=== PATIENT | female | born 1955 | race Two or more races ===

== ENCOUNTER 2025-06-28 17:49 | Emergency (ER) | payer MEDICARE, OTHER ==
[~2025-06-28] VITALS: Ht 160 cm; Wt 67.4 kg
[2025-06-28 18:44] LABS: Hematocrit 36.4 % (36.0-46.0); Hemoglobin 12.7 g/dL (12.2-16.2); Mean Corpuscular Hemoglobin 34.7 pg (28.0-32.0); Mean Corpuscular Volume 99.5 fL (80.0-100.0); Nucleated Red Blood Cells % 0.2 %
--- NOTE | 2025-06-28 19:15 | ED.PDOC ---
Musculoskeletal HPI Comments 69-year-old female presents with chief complaint of bilateral foot and leg pain for two weeks Pain throughout the entirety of both legs. Pain in right leg is worse than left leg. No reported recent fall, trauma, or injury. Denies any shortness of breath, chest pain, numbness, tingling, or further associated stiffness. HPI: Poor Historian. Past Medical History: anxiety, depression, HLD, HTN - on HTZ Past Surgical History: REVIEW OF SYSTEMS: CONSTITUTIONAL: Denies acute: fever, diaphoresis, chills, generalized weakness. HEAD: Denies acute: headache, photophobia Eyes: Denies acute: Double vision, vision loss, eye pain, eye discharge. EARS: Denies acute: tinnitus, hearing loss, ear discharge, ear pain, THROAT: Denies acute: sore throat, swelling, difficulty swallowing , pain with swallowing, change in voice. NECK: Denies acute: neck pain, neck swelling, stiff neck. HEART: Denies acute : chest pain, palpitations, LUNGS: Denies acute: SOB, wheezing, cough, hemoptysis ABDOMEN: Denies acute: abdominal pain, Nausea, Vomiting, diarrhea, melena , hematemesis, hematochezia SKIN: Denies acute: rash, redness, lesions, itchiness. EXTREMITIES: Denies acute: calf pain, numbness, tingling, weakness, Denies acute: Low back pain. Neuro: Denies acute: focal neurological deficit, motor or sensory focal neurological deficit, tremors, seizure like activity, confusion, dizziness, change in mental status, loss of bowel or bladder function, cauda equina like symptoms. : Denies acute: dysuria, hematuria, flank pain, increase in urinary frequency. PSYCH: Denies acute: hallucination, suicidal ideation, homicidal ideation. FEMALE: Denies acute: abnormal vaginal bleeding, foul odor, unusual discharge. PHYSICAL EXAM: General: ---no-----acute distress, awake and alert. Head: normocephalic, atraumatic. Neck: supple, trachea is midline, no swelling. Throat: Normal phonation. Eyes:, no erythema, no purulent discharge, no proptosis, no icterus. Heart: regular rate, regular rhythm, no significant murmur appreciated. Lungs: no apparent respiratory distress, Able to speak in full sentences. No wheezing, no rhonchi, no crackles. No stridors Clear to auscultation bilaterally. Abdomen: non tender to palpation, non distended, soft, no guarding, no rebound, + bowel sounds. Neuro: Awake, Alert, oriented to name, self, situation, follows commands GCS=15. Speech is normal. Skin: no petechia, no purpura, no cyanosis, non-pale, not jaundice. Lower extremities: --trace bilateral - Pitting edema no deformity, no focal swelling, Patient is neurovascularly intact in bilateral lower extremity. Pedal pulses palpable. Sensory and motor are present. Makes eye contact. moves all four extremities. Face: no apparent facial droop. Ambulating in the ED independently. Pedal pulses are palpable. ED COURSE: DISCLAIMER: This medical document was created using an electronic medical record system with voice recognition software and computerized dictation system. Although this document has been carefully reviewed, there might still be some phonetic and typographical errors. Occasional wrong-word or "sound-alike" substitutions may have occurred due to the inherent limitations of voice recognition software. These areas are purely typographical due to imperfections of the software programs and do not reflect any compromise in the patient's medical care. Please read the chart carefully and recognize, using context, where these substitutions have occurred. Chief Complaint: Extremity Swelling Time Seen by MD: 18:05 Reviewed Notes: Allergies Allergies: Coded Allergies: NO KNOWN ALLERGIES (Unverified , 06/28/25) Home Meds Active Scripts Cephalexin Monohydrate (Cephalexin) 500 Mg Cap, 500 MG PO Q6HR for 7 Days, #28 TAB Prov:RAEANN COHN Nona MCELROY 06/28/25 Information Source: Patient Mode of Arrival: Ambulatory Location: Bilateral Was a procedure done? Was a procedure done?: No Differential Diagnosis EXT Differential Diagnosis: Cellulitis, CHF, Deep Vein Thrombosis, Compartment Syndrome, Fracture, Sprain, Dislocation, Laceration, Gout, DJD, Myocardial Infarction, Neurovascular injury, Other (Leg swellingDdx include but not limited to DVT, ischemic limb, pitting edema, volume overload, CHF, cellulitis, hematoma, compartment syndrome, dependent edema, venous stasis.) Other Differential Diagnosis Peripheral vascular disease, neuropathy X-Ray, Labs, Meds, VS Vital Signs Date Time Temp Pulse Resp B/P (MAP) Pulse Ox O2 Delivery O2 Flow Rate FiO2 06/29/25 00:08 97.7 63 20 127/64 (85) 94 97.7 06/29/25 00:00 100 Room Air* 0 21 06/28/25 17:51 98.0 73 15 144/72 95 98.0 Lab Test 06/28/25 18:22 Range/Units White Blood Count 5.8 4.4-10.8 10^3/uL Red Blood Count 3.65 L 4.0-5.20 10^6/uL Hemoglobin 12.7 12.2-16.2 g/dL Hematocrit 36.4 36.0-46.0 % Mean Corpuscular Volume 99.5 80.0-100.0 fL Mean Corpuscular Hemoglobin 34.7 H 28.0-32.0 pg Mean Corpuscular Hemoglobin Concent 34.9 32.0-36.0 g/dL Red Cell Distribution Width 14.5 H 11.8-14.3 % Platelet Count 141 140-450 10^3/uL Mean Platelet Volume 8.1 6.9-10.8 fL Neutrophils (%) (Auto) 50.4 37.0-80.0 % Lymphocytes (%) (Auto) 34.7 10.0-50.0 % Monocytes (%) (Auto) 12.4 H 0.0-12.0 % Eosinophils (%) (Auto) 2.1 0.0-7.0 % Basophils (%) (Auto) 0.4 0.0-2.0 % Neutrophils # (Auto) 2.9 1.6-8.6 10 ^3/uL Lymphocytes # (Auto) 2.0 0.4-5.4 10 ^3/uL Monocytes # (Auto) 0.7 0-1.3 10 ^3/uL Eosinophils # (Auto) 0.1 0-0.8 10 ^3/uL Basophils # (Auto) 0 0-0.2 10 ^3/uL Nucleated Red Blood Cells 0.2 % Erythrocyte Sedimentation Rate 36 H 0-20 mm/hr Sodium Level 138 136-145 mmol/L Potassium Level 3.4 L 3.5-5.1 mmol/L Chloride Level 105 98-107 mmol/L Carbon Dioxide Level 25 20-31 mmol/L Anion Gap 8 5-15 Blood Urea Nitrogen 7 L 9-23 mg/dL Creatinine 0.75 0.550-1.02 mg/dL Glomerular Filtration Rate Calc 86 >90 mL/min BUN/Creatinine Ratio 9.3 L 10.0-20.0 Serum Glucose 124 H 74-106 mg/dL Calcium Level 8.2 L 8.7-10.4 mg/dL Troponin I High Sensitivity 12 </=34 ng/L C-Reactive Protein High Sensitivity 1.80 H <1.0 mg/dL B-Type Natriuretic Peptide 139.22 0-100 pg/mL [place] [address] Ph: [phone] DIAGNOSTIC IMAGING Diagnostic Imaging Report : [id number] Signed PATIENT: KAMARI YOU ACCT: [id number] UNIT: [id number] : 1955 LOC: ER ROOM / BED: / AGE / SEX: 69 / F ADM STATUS: REG ER SERVICE 01 ORDERING PHYSICIAN: RAEANN COHN DO PROCEDURE(s): BLDVT - BiLat Lower DVT REASON: leg pain ORDER NUMBER(s): [id number], ACCESSION NUMBER(s): [id number] CLINICAL HISTORY: leg pain TECHNIQUE: Color and duplex doppler imagine of the bilateral lower extremity veins was performed. Vessel compression and augmentation if possible was also pe rformed. COMPARISON: None FINDINGS: Right lower Extremity: Right common femoral vein: Normal compressibility and flow. Right superficial femoral vein: Normal compressibility and flow. Right popliteal vein: Normal compressibility and flow. Proximal calf veins demonstrate flow. Left lower Extremity: Left common femoral vein: Normal compressibility and flow. Left superficial femoral vein: Normal compressibility and flow. Left popliteal vein: Normal compressibility and flow. Proximal calf veins demonstrate flow. IMPRESSION: NO SONOGRAPHIC EVIDENCE FOR DEEP VENOUS THROMBOSIS IN THE BILATERAL LOWER EXTREMITY VEINS. ATED BY: SERGIO CARMONA MD DICTATED DATE/TIME: 06/28/252117 SIGNED BY: SERGIO CARMONA MD SIGNED DATE/TIME: 06/28/252117 CC: Time of 1ST Reevaluation: 18:35 Reevaluation 1ST: Unchanged Patient Education/Counseling: Diagnosis, Treatment Family Education/Counseling: No Family Present Comments MDM: patient presented with the above HPI.--leg pain----workup was initiated. patient was found with the above mentioned diagnosis. the following medications were ordered: please refer to order lists of meds and tests obtained by myself Dr. Cohn. Patient ED course and VS have been stabilized. Patient has been reassessed in the ED and remained in a stable condition. Pertinent incidental findings were discussed with the patient and/or family. Patient/family voices understanding and is agreeable with plan. Patient has been observed in the ED adequate length of time to insure improvement/stability. Escalation of care considered: Consideration of escalation to observation or admission Patient ambulating independently in the ED. Patient was DISCHARGED home in a stable condition. All the reports of any imaging studies that were ordered by myself were reviewed by myself. Departure 1 Departure Time of Disposition: 23:46 Impression: Primary Impression: Bilateral leg pain Disposition: 01 HOME / SELF CARE / HOMELESS Condition: Stable Additional Instructions: Additional instructions: Please read all instructions provided in this packet carefully. You MUST follow-up with your primary care/family doctor in 1 to 2 days. If you are unable to see your primary care/family doctor, please return to our emergency room for re-assessment and re-evaluation in 1 to 2 days. Return to the emergency room here in our facility or to the nearest ER [facility] if your symptoms change or worsen. CONSULTATIONS: you MUST Follow-up for consultation as soon as possible with: -vascular medicine doctor in 1-2 days. Please call for appointment. You MUST call the consultants office yourself to make an appointment. You may need to arrange that through your insurance and/or your primary/family doctor. If you are unable to see the senior research consultant in 1 to 2 days, you must return to our emergency room (or any other ER of your choice) for re-assessment and re- evaluation. Adequate fluid hydration. Although you have been discharged from the Emergency Department, this does not mean that you have a "clean bill of health". No definitive diagnosis for your symptoms has been made today. It is possible that you are in the process of developing a serious illness. This is why you must return to the ED without fail if any new or worsening symptoms develop. Below is a copy of your radiological report for follow up: [place] [address] Ph: [phone] DIAGNOSTIC IMAGING Diagnostic Imaging Report : [id number] Signed PATIENT: KAMARI YOU ACCT: [id number] UNIT: [id number] : 1955 LOC: ER ROOM / BED: / AGE / SEX: 69 / F ADM STATUS: REG ER SERVICE 01 ORDERING PHYSICIAN: RAEANN COHN DO PROCEDURE(s): BLDVT - BiLat Lower DVT REASON: leg pain ORDER NUMBER(s): [id number], ACCESSION NUMBER(s): [id number] CLINICAL HISTORY: leg pain TECHNIQUE: Color and duplex doppler imagine of the bilateral lower extremity veins was performed. Vessel compression and augmentation if possible was also performed. COMPARISON: None FINDINGS: Right lower Extremity: Right common femoral vein: Normal compressibility and flow. Right superficial femoral vein: Normal compressibility and flow. Right popliteal vein: Normal compressibility and flow. Proximal calf veins demonstrate flow. Left lower Extremity: Left common femoral vein: Normal compressibility and flow. Left superficial femoral vein: Normal compressibility and flow. Left popliteal vein: Normal compressibility and flow. Proximal calf veins demonstrate flow. IMPRESSION: NO SONOGRAPHIC EVIDENCE FOR DEEP VENOUS THROMBOSIS IN THE BILATERAL LOWER EXTREMITY VEINS. ATED BY: SERGIO CARMONA MD DICTATED DATE/TIME: 06/28/252117 SIGNED BY: SERGIO CARMONA MD SIGNED DATE/TIME: 06/28/252117 CC: e-Prescriptions Cephalexin Monohydrate (Cephalexin) 500 Mg Cap 500 MG PO Q6HR for 7 Days, #28 TAB Prov: RAEANN COHN DO 06/28/25 Discharged With: Self Critical Care Note Critical Care Time?: No I personally scribed for RAEANN COHN DO ([email or web address]) on 06/28/25 at 19:15. Electronically submitted by Blayne Yoo ([email or web address]). I personally scribed for RAEANN COHN DO ([email or web address]) on 06/28/25 at 22:35. Electronically submitted by Blayne Yoo ([email or web address]). I personally scribed for RAEANN COHN DO ([email or web address]) on 06/28/25 at 23:23. Electronically submitted by Blayne Yoo ([email or web address]). I personally scribed for RAEANN COHN DO ([email or web address]) on 06/28/25 at 23:46. Electronically submitted by Blayne Yoo ([email or web address]). RAEANN COHN DO Jun 28, 2025 19:15
[2025-06-28 19:57] LABS: Chloride 105 mmol/L (98-107); Potassium 3.4 mmol/L (3.5-5.1); Sodium 138 mmol/L (136-145)
[2025-06-28 20:02] LABS: Anion Gap 8 (5-15); BUN/Creatinine Ratio 9.3 (10.0-20.0); Blood Urea Nitrogen 7 mg/dL (9-23); Calcium 8.2 mg/dL (8.7-10.4); Carbon Dioxide 25 mmol/L (20-31); Glucose 124 mg/dL (74-106)
--- NOTE | 2025-06-28 21:20 | DVH ---
CLINICAL HISTORY: leg pain TECHNIQUE: Color and duplex doppler imagine of the bilateral lower extremity veins was performed. Ves bud compression and augmentation if possible was also performed. COMPARISON: None FINDINGS: Right lower Extremity: Right common femoral vein: Normal compressibility and flow. Right superficial femoral vein: Normal compressibility and flow. Right popliteal vein: Normal compressibility and flow. Proximal calf veins demonstrate flow. Left lower Extremity: Left common femoral vein: Normal compressibility and flow. Left superficial femoral vein: Normal compressibility and flow. Left popliteal vein: Normal compressibility and flow. Proximal calf veins demonstrate flow. IMPRESSION: NO SONOGRAPHIC EVIDENCE FOR DEEP VENOUS THROMBOSIS IN THE BILATERAL LOWER EXTREMITY VEINS.
[2025-06-28] MEDS ORDERED: CEPH500C PO (23:48)
[2025-06-29] VITALS: O2SAT 100
[2025-06-29 00:08] VITALS: BP 127/64; PULSE 63; RESP 20; TEMP 97.7; O2SAT 94
== END 2025-06-29 00:30 | disposition home or self-care (01) ==
LOC: ER 17:49
DX: M79.604 Pain in right leg (principal); M79.605 Pain in left leg; M79.671 Pain in right foot; M79.672 Pain in left foot; Z79.899 Other long term (current) drug therapy
CPT/HCPCS: 36415; 80048; 83880; 84484; 85025; 85652; 86141; 93970

== ENCOUNTER 2025-07-01 20:40 | Inpatient (IN) | payer MEDICARE ==
[~2025-07-01] VITALS: Ht 170.2 cm; Wt 61.9 kg
[~2025-07-01 20:40] MED LIST: CEPH500C PO
--- NOTE | 2025-07-01 20:52 | ED.PDOC ---
GI ASSESSMENT HPI Comments HPI: 69-year-old female who came to ER via EMS for abdominal pain. Patient claims she has been having diffuse abdominal pain for over 2 weeks. Noted also abdominal distention. Denies any nausea or vomiting or changes in bowel habits Initial Vitals BP: HR: RR: O2: Temp: Past Medical History: Hypertension, dyslipidemia, anxiety, depression Past Surgical History: Cholecystectomy Social History: Denies ETOH, smoking, and drug use. HPI: Poor Historian. 69-year-old female presents to emergency depart by ambulance from home for evaluation of diffuse abdominal pain for the last two weeks without any nausea or vomiting or diarrhea. Denies any fever. Patient was seen here two days ago for leg pain and she never mentioned anything about her abdominal pain to anyone during that evaluation. REVIEW OF SYSTEMS: CONSTITUTIONAL: Denies acute: fever, diaphoresis, chills, HEAD: Denies acute: headache, photophobia Eyes: Denies acute: Double vision, vision loss, eye pain, eye discharge. EARS: Denies acute: tinnitus, hearing loss, ear discharge, ear pain, THROAT: Denies acute: sore throat, swelling, difficulty swallowing , pain with swallowing, change in voice. NECK: Denies acute: neck pain, neck swelling, stiff neck. HEART: Denies acute : chest pain, palpitations, LUNGS: Denies acute: SOB, wheezing, cough, hemoptysis ABDOMEN: Denies acute: Nausea, Vomiting, diarrhea, melena , hematemesis, hematochezia SKIN: Denies acute: rash, redness, lesions, itchiness. EXTREMITIES: Denies acute: calf pain, numbness, tingling, weakness, denies pain in extremity. Denies acute: Low back pain. Neuro: Denies acute: focal neurological deficit, motor or sensory focal neurological deficit, tremors, seizure like activity, confusion, dizziness, change in mental status, loss of bowel or bladder function, cauda equina like symptoms. : Denies acute: dysuria, hematuria, flank pain, increase in urinary frequency. PSYCH: Denies acute: hallucination, suicidal ideation, homicidal ideation. FEMALE: Denies acute: abnormal vaginal bleeding, foul odor, unusual discharge. PHYSICAL EXAM: General: --[id number]------acute distress, awake and alert. Head: normocephalic, atraumatic. Neck: supple, trachea is midline, no swelling. Throat: Normal phonation. Eyes:, no erythema, no purulent discharge, no proptosis, no icterus. Heart: regular rate, regular rhythm, no significant murmur appreciated. Lungs: no apparent respiratory distress, Able to speak in full sentences. No wheezing, no rhonchi, no crackles. No stridors Clear to auscultation bilaterally. Abdomen: Generalized tender to palpation, non distended, soft, no guarding, no rebound, + bowel sounds. Neuro: Awake, Alert, oriented to name, self, situation, follows commands GCS=15. Speech is normal. Skin: no petechia, no purpura, no cyanosis, non-pale, not jaundice. Lower extremities: --no - Pitting edema no deformity, no focal swelling, no calf TTP. Makes eye contact. moves all four extremities. Face: no apparent facial droop. ED COURSE: DISCLAIMER: This medical document was created using an electronic medical record system with voice recognition software and computerized dictation system. Although this document has been carefully reviewed, there might still be some phonetic and typographical errors. Occasional wrong-word or "sound-alike" substitutions may have occurred due to the inherent limitations of voice recognition software. These areas are purely typographical due to imperfections of the software programs and do not reflect any compromise in the patient's medical care. Please read the chart carefully and recognize, using context, where these substitutions have occurred. Chief Complaint: Abdominal pain Time Seen by MD: 20:50 Reviewed Notes: B[employer] Process Control Technician Notes, Allergies Allergies: Coded Allergies: NO KNOWN ALLERGIES (Unverified , 06/28/25) Home Meds Active Scripts Cephalexin (KEFLEX CAPSULE) 250 Mg Cp, 500 MG PO BID for 3 Days, #6 CAP Prov:TAMMY ZULUAGA RESIDENT 07/06/25 Lactulose (Lactulose) 10 Gm/15 Ml Violet, 20 GM PO DAILY for 30 Days, #600 ML 1 Refill Prov:TAMMY ZULUAGA RESIDENT 07/06/25 Pantoprazole Sodium Sesquihydr (Pantoprazole Sodium) 40 Mg Tab, 20 MG PO DAILY for 30 Days, #30 TAB Prov:TAMMY ZULUAGA RESIDENT 07/06/25 Spironolactone (Spironolactone) 100 Mg Tab, 1 TAB PO DAILY PRN, #30 TAB 1 Refill Prov:TAMMY ZULUAGA RESIDENT 07/06/25 Furosemide (Lasix) 40 Mg Tab, 40 MG PO DAILY for 30 Days, #30 TAB Prov:KAITY ZULUAGAMETHODIST [facility] RES[facility] 07/06/25 Cephalexin Monohydrate (Cephalexin) 500 Mg Cap, 500 MG PO Q6HR for 7 Days, #28 TAB Prov:RAEANN COHN DO 06/28/25 Reported Medications Oxybutynin Chloride (Oxybutynin Chloride) 5 Mg/5 Ml Violet, 5 MG PO, ML 07/02/25 Citalopram Hydrobromide (Citalopram Hydrobromide) 40 Mg Tab, 40 MG PO DAILY for 30 Days, MG 07/02/25 Atorvastatin Calcium (ATORVASTATIN CALCIUM) 20 Mg Tab, 1 TAB PO DAILY, #30 TAB 5 Refills 07/02/25 Hydrochlorothiazide (Hydrochlorothiazide) 25 Mg Tab, 25 MG PO DAILY for 30 Days, MG 07/02/25 Baclofen (Baclofen) 10 Mg Tab, 10 MG PO Q8HP for 30 Days, MG 07/02/25 Pantoprazole Sodium (PANTOPRAZOLE SODIUM) 40 Mg Inj, 40 MG IV, INJ 07/02/25 Information Source: Patient Mode of Arrival: EMS Timing: Weeks Duration: Intermittent Past Medical History PAST MEDICAL HISTORY: Anxiety, Depression, High Lipids, HTN Surgical History: Cholecystectomy PHOTOGRAPH RETOUCHER History: Denies all PHOTOGRAPH RETOUCHER Hx Family History Family History: Reviewed,noncontributory to illness Social History Smoker: Non-Smoker Alcohol: Denies ETOH Use Drugs: Denies Drug Use Lives In: Home EKG EKG : Pulse Rate (adult): 81 Cardiac Rhythm: NSR Was a procedure done? Was a procedure done?: No GI differential Dx Differential Diagnosis: Gastritis/PUD, Gastroenteritis, Pancreatitis, UTI, Other (DDX include Diverticulitis, colitis, gastroenteritis, acute abdomen, SBO, enteritis, constipation, volvulus, appendicitis, Gallbladder disease, choledocolithiasis, ascending cholangitis, pancreatitis, intraAbdominal mass/neoplasm, hepatitis, UTI, pylonephritis, kidney stone, aneurysm, dissection, Inflammatory bowel disease, gastroparesis, ischemic bowel, ) X-Ray, Labs, Meds, VS Vital Signs Date Time Temp Pulse Resp B/P (MAP) Pulse Ox O2 Delivery O2 Flow Rate FiO2 07/02/25 01:27 135/60 07/02/25 01:09 84 12 95 Room Air* 0 21 07/02/25 01:08 98.7 84 12 135/60 (85) 95 98.7 07/01/25 20:52 81 07/01/25 20:42 81 07/01/25 20:40 98.6 63 18 121/67 97 98.6 Lab Test 07/02/25 00:17 07/01/25 23:03 07/01/25 21:57 07/01/25 21:02 Range/Units Troponin I High Sensitivity 11 14 12 </=34 ng/L Lactic Acid Level 2.6 *H 2.4 *H 0.4-2.0 mmol/L White Blood Count 6.2 4.4-10.8 10^3/uL Red Blood Count 3.79 L 4.0-5.20 10^6/uL Hemoglobin 13.2 12.2-16.2 g/dL Hematocrit 37.6 36.0-46.0 % Mean Corpuscular Volume 99.0 80.0-100.0 fL Mean Corpuscular Hemoglobin 34.7 H 28.0-32.0 pg Mean Corpuscular Hemoglobin Concent 35.1 32.0-36.0 g/dL Red Cell Distribution Width 14.9 H 11.8-14.3 % Platelet Count 178 140-450 10^3/uL Mean Platelet Volume 7.7 6.9-10.8 fL Neutrophils (%) (Auto) 70.9 37.0-80.0 % Lymphocytes (%) (Auto) 20.4 10.0-50.0 % Monocytes (%) (Auto) 8.1 0.0-12.0 % Eosinophils (%) (Auto) 0.4 0.0-7.0 % Basophils (%) (Auto) 0.2 0.0-2.0 % Neutrophils # (Auto) 4.4 1.6-8.6 10 ^3/uL Lymphocytes # (Auto) 1.3 0.4-5.4 10 ^3/uL Monocytes # (Auto) 0.5 0-1.3 10 ^3/uL Eosinophils # (Auto) 0 0-0.8 10 ^3/uL Basophils # (Auto) 0 0-0.2 10 ^3/uL Nucleated Red Blood Cells 0.2 % Sodium Level 137 136-145 mmol/L Potassium Level 3.2 L 3.5-5.1 mmol/L Chloride Level 103 98-107 mmol/L Carbon Dioxide Level 25 20-31 mmol/L Anion Gap 9 5-15 Blood Urea Nitrogen < 5 L 9-23 mg/dL Creatinine 0.77 0.550-1.02 mg/dL Glomerular Filtration Rate Calc 83 >90 mL/min BUN/Creatinine Ratio 6.5 L 10.0-20.0 Serum Glucose 130 H 74-106 mg/dL Calcium Level 8.2 L 8.7-10.4 mg/dL Total Bilirubin 3.3 H 0.2-1.0 mg/dL Aspartate Amino Transferase (AST) 202 H 13-40 U/L Alanine Aminotransferase (ALT) 141 H 7-40 U/L Alkaline Phosphatase 168 H 46-116 U/L Total Protein 8.6 H 5.7-8.2 g/dL Albumin 2.6 L 3.2-4.8 g/dL Lipase 40 12-53 U/L [place] [id number] Ph: [phone] DIAGNOSTIC IMAGING Diagnostic Imaging Report : [id number] Signed PATIENT: KAMARI YOU ACCT: [id number] UNIT: [id number] : 1955 LOC: ER ROOM / BED: / AGE / SEX: 69 / F ADM STATUS: REG ER SERVICE 22 ORDERING PHYSICIAN: RAEANN COHN DO PROCEDURE(s): ABDL - ABDOMEN LIMITED REASON: RUQ US, abd pain ORDER NUMBER(s): [id number], ACCESSION NUMBER(s): [id number] INDICATION: RUQ US, abd pain TECHNIQUE: Multiple real-time sonographic images were obtained of the right upper quadrant. COMPARISON: None FINDINGS: The liver measures 9.7 cm. There is increased hepatic echogenicity. There is nodular contour. Prior cholecystectomy. The common bile duct measures 6 mm. The right kidney measures 9.8 cm. The right kidney is normal in contour, size, and shape. The echogenicity is normal. There is no hydronephrosis. The pancreas is not well visualized due to overlying bowel gas. Ascites is seen in all 4 quadrants. IMPRESSION: 1. Cirrhotic appearance of the liver. 2. Ascites. ATED BY: SERGIO CARMONA MD DICTATED DATE/TIME: 07/01/252315 SIGNED BY: SERGIO CARMONA MD SIGNED DATE/TIME: 07/01/252315 CC: [place] [id number] Ph: [phone] DIAGNOSTIC IMAGING Diagnostic Imaging Report : [id number] Signed PATIENT: KAMARI YOU ACCT: [id number] UNIT: [id number] : 1955 LOC: ER ROOM / BED: / AGE / SEX: 69 / F ADM STATUS: REG ER SERVICE 46 ORDERING PHYSICIAN: RAEANN COHN DO PROCEDURE(s): ABPL - CT AB PEL WO CON-NO ORAL OR IV REASON: ABD PAIN ORDER NUMBER(s): [id number], ACCESSION NUMBER(s): [id number] CLINICAL HISTORY: ABD PAIN TECHNIQUE: CT of the abdomen and pelvis was performed without IV contrast. This exam was performed according to our departmental dose optimization program. Up-to-date CT equipment and radiation dose reduction techniques are utilized as appropriate. CTDI 8.4 DLP 474 COMPARISON: None FINDINGS: Evaluation is limited to image degradation secondary to patient motion. Abdomen/Pelvis: The adrenal glands, kidneys, pancreas, spleen, and uterus are grossly unremarkable. The liver is cirrhotic in morphology with nodular contour. The bladder is not well distended and therefore not well evaluated. The abdominal aorta is normal in course and caliber. There are no significant atherosclerotic calcifications. There is no free intraperitoneal air. Is a large amount of sites in the peritoneal cavity. There is no enlarged abdominal pelvic lymph node. There is no bowel wall thickening or dilatation. The appendix is normal. Other: The imaged lower thorax demonstrates trace bilateral pleural effusions. There are breathing changes with atelectasis. No acute osseous abnormality is evident. Impression: Cirrhosis with large amount of ascites. Cholecystectomy. ATED BY: SERGIO CARMONA MD DICTATED DATE/TIME: 07/01/252216 SIGNED BY: SERGIO CARMONA MD SIGNED DATE/TIME: 07/01/252216 CC: Time of 1ST Reevaluation: 20:49 Reevaluation 1ST: Unchanged Patient Education/Counseling: Diagnosis, Treatment Family Education/Counseling: No Family Present Comments MDM: patient presented with the above HPI.---abdominal pain---workup was initiated. patient was found with the above mentioned diagnosis. the following medications were ordered: please refer to order lists of meds and tests obtained by myself Dr. Cohn. Patient ED course and VS have been stabilized. Patient has been reassessed in the ED and remained in a stable condition. Pertinent incidental findings were discussed with the patient and/or family. Patient/family voices understanding and is agreeable with plan. Patient has been observed in the ED adequate length of time to insure improvement/stability. Escalation of care considered: Consideration of escalation to observation or admission Patient was ADMITTED to the medicine team for further evaluation and treatment of their presentation. All the reports of any imaging studies that were ordered by myself were reviewed by myself. SEPSIS Sepsis Screen Physician Orders Petroleum Inspector (07/01/25 ) Ct Ab Pel Wo Con-No Oral Or Iv (07/01/25 20:47) Abdomen Limited (07/01/25 22:23) Vital Signs Date Time Temp Pulse Resp B/P (MAP) Pulse Ox O2 Delivery O2 Flow Rate FiO2 07/02/25 01:27 135/60 07/02/25 01:09 84 12 95 Room Air* 0 21 07/02/25 01:08 98.7 84 12 135/60 (85) 95 98.7 07/01/25 20:52 81 07/01/25 20:42 81 07/01/25 20:40 98.6 63 18 121/67 97 98.6 Laboratory Tests Test 07/01/25 21:02 07/01/25 23:03 Lactic Acid Level 2.4 mmol/L (0.4-2.0) *H 2.6 mmol/L (0.4-2.0) *H White Blood Count 6.2 10^3/uL (4.4-10.8) Departure 1 Departure Time of Disposition: 22:08 Impression: Primary Impression: Abdominal pain Additional Impressions: Elevated LFTs Hyperbilirubinemia Hypoalbuminemia Elevated lactic acid level Ascites Disposition: ADMITTED INPATIENT Admit to: Tele Condition: Guarded e-Prescriptions Cephalexin (KEFLEX CAPSULE) 250 Mg Cp 500 MG PO BID for 3 Days, #6 CAP [facility] 07/06/25 Lactulose (Lactulose) 10 Gm/15 Ml Violet 20 GM PO DAILY for 30 Days, #600 ML 1 [facility]ill [facility] 07/06/25 Pantoprazole Sodium Sesquihydr (Pantoprazole Sodium) 40 Mg Tab 20 MG PO DAILY for 30 Days, #30 TAB Prov: [facility] 07/06/25 Spironolactone (Spironolactone) 100 Mg Tab 1 TAB PO DAILY PRN, #30 TAB 1 [facility] 07/06/25 Furosemide (Lasix) 40 Mg Tab 40 MG PO DAILY for 30 Days, #30 TAB [facility]: [facility] 07/06/25 Discharged With: Self Critical Care Note Critical Care Time?: Yes (45 min-critical care time only) Stability Stability form required: No I personally scribed for RAEANN COHN DO ([email or web address]) on 07/01/25 at 20:52. Electronically submitted by Donavan Anderson ([facility]). I personally scribed for RAEANN COHN DO ([email or web address]) on 07/01/25 at 20:52. Electronically submitted by Donavan Anderson ([facility]). I personally scribed for RAEANN COHN DO ([email or web address]) on 07/01/25 at 22:31. Electronically submitted by Donavan Anderson ([facility]). I personally scribed for RAEANN COHN DO ([email or web address]) on 07/01/25 at 23:43. Electronically submitted by Donavan Anderson ([facility]). RAEANN COHN DO Jul 01, 2025 20:52
[2025-07-01 21:15] LABS: Hematocrit 37.6 % (36.0-46.0); Hemoglobin 13.2 g/dL (12.2-16.2); Mean Corpuscular Hemoglobin 34.7 pg (28.0-32.0); Mean Corpuscular Volume 99.0 fL (80.0-100.0); Nucleated Red Blood Cells % 0.2 %
--- NOTE | 2025-07-01 21:30 | ECG ---
[facility] Test Date: 2025-07-01 Test Time: 20:42:49 Pat Name: KAMARI YOU Department: Room: 0287 Gender: F Lead Technical Writer: BRANDI : 1955 Requested By: RAEANN COHN Order Number: [id number] Reading MD: Nicolas Hernandez Measurements Intervals [place] Rate: 81 P: 60 HI: 152 QRS: 35 QRSD: 83 T: 40 QT: 391 QTc: 454 Interpretive Statements Sinus rhythm Borderline low voltage, extremity leads Electronically Signed On 07-07-2025 9:24:14 PDT by Nicolas Hernandez Please click the below link to view image of tracing.
[2025-07-01 21:43] LABS: Anion Gap 9 (5-15); Carbon Dioxide 25 mmol/L (20-31); Chloride 103 mmol/L (98-107); Lipase 40 U/L (12-53); Sodium 137 mmol/L (136-145)
[2025-07-01 21:50] LABS: Alanine Aminotransferase 141 U/L (7-40); Albumin 2.6 g/dL (3.2-4.8); Alkaline Phosphatase 168 U/L (46-116); BUN/Creatinine Ratio 6.5 (10.0-20.0); Bilirubin, Total 3.3 mg/dL (0.2-1.0); Blood Urea Nitrogen < 5 mg/dL (9-23); Calcium 8.2 mg/dL (8.7-10.4); Glucose 130 mg/dL (74-106); Potassium 3.2 mmol/L (3.5-5.1); Total Protein 8.6 g/dL (5.7-8.2)
[2025-07-01 22:12] LABS: Lactic Acid w/Reflex 2.4 mmol/L (0.4-2.0)
--- NOTE | 2025-07-01 22:20 | DVH ---
CLINICAL HISTORY: ABD PAIN TECHNIQUE: CT of the abdomen and pelvis was performed without IV contrast. This exam was performed ac cording to our departmental dose optimization program. Up-to-date CT equipment and radiation dose red uction techniques are utilized as appropriate. CTDI 8.4 DLP 474 COMPARISON: None FINDINGS: Evaluation is limited to image degradation secondary to patient motion. Abdomen/Pelvis: The adrenal glands, kidneys, pancreas, spleen, and uterus are grossly unremarkable. The liver is cirrhotic in morphology with nodular contour. The bladder is not well distended and therefore not well evaluated. The abdominal aorta is normal in course and caliber. There are no significant atherosclerotic calcifi cations. There is no free intraperitoneal air. Is a large amount of sites in the peritoneal cavity. There is no enlarged abdominal pelvic lymph node. There is no bowel wall thickening or dilatation. The appendix is normal. Other: The imaged lower thorax demonstrates trace bilateral pleural effusions. There are breathing changes w ith atelectasis. No acute osseous abnormality is evident. Impression: Cirrhosis with large amount of ascites. Cholecystectomy.
--- NOTE | 2025-07-01 23:19 | DVH ---
INDICATION: RUQ US, abd pain TECHNIQUE: Multiple real-time sonographic images were obtained of the right upper quadrant. COMPARISON: None FINDINGS: The liver measures 9.7 cm. There is increased hepatic echogenicity. There is nodular conto ur. Prior cholecystectomy. The common bile duct measures 6 mm. The right kidney measures 9.8 cm. The right kidney is normal in contour, size, and shape. The echog enicity is normal. There is no hydronephrosis. The pancreas is not well visualized due to overlying bowel gas. Ascites is seen in all 4 quadrants. IMPRESSION: 1. Cirrhotic appearance of the liver. 2. Ascites.
[2025-07-02] VITALS (10 sets, daily range): BP systolic 102–128; BP diastolic 61–74; PULSE 70–91; RESP 12–20; TEMP 98.3–100.1; O2SAT 92–97
[2025-07-02] MEDS: SODIUM CHLORIDE 0.9% 1,000 ML IV ONE (00:58)
[2025-07-02] MEDS: ALBUMIN 25% 100 ML IV ONE (01:01)
[2025-07-02] MEDS: fentaNYL CITRATE 100 MCG/2 ML VL IV ONE (01:27)
[2025-07-02] MEDS ORDERED: DOCUSATE SOD 100 MG CAP PO PRN (02:00)
[2025-07-02] MEDS ORDERED: ONDANSETRON HCL 4 MG/2 ML VIAL IV PRN (02:00)
[2025-07-02 02:59] LABS: INR 1.43 (0.9-1.15); Prothrombin Time 14.6 sec (9.3-11.8)
[2025-07-02 04:08] LABS: Hematocrit 34.6 % (36.0-46.0); Hemoglobin 11.7 g/dL (12.2-16.2); Mean Corpuscular Hemoglobin 34.7 pg (28.0-32.0); Mean Corpuscular Volume 102.5 fL (80.0-100.0); Nucleated Red Blood Cells % 0.1 %
[2025-07-02 04:16] LABS: Anion Gap 10 (5-15); BUN/Creatinine Ratio 8.5 (10.0-20.0); Carbon Dioxide 23 mmol/L (20-31); Chloride 106 mmol/L (98-107); Sodium 139 mmol/L (136-145); Total Protein 8.0 g/dL (5.7-8.2)
[2025-07-02 04:19] LABS: Alanine Aminotransferase 118 U/L (7-40); Albumin 3.0 g/dL (3.2-4.8); Alkaline Phosphatase 137 U/L (46-116); Bilirubin, Total 3.7 mg/dL (0.2-1.0); Blood Urea Nitrogen 6 mg/dL (9-23); Calcium 8.2 mg/dL (8.7-10.4); Glucose 110 mg/dL (74-106); Potassium 3.4 mmol/L (3.5-5.1)
--- NOTE | 2025-07-02 05:56 | DVHHPRES ---
History of Present Illness Resident Creating Document: LYRIC BRAY RESIDENT History of Present Illness Anitha Mijares is a 69-year-old female with past medical history of hypertension, dyslipidemia, anxiety, depression who came to the ED with chief complaints of 9/10, intermittent abdominal pain associated with abdominal diste ntion, progressively worsening over 2 weeks, radiating to the back patient also states that she feels like food gets stuck in her throat, had watery diarrhea 3 times yesterday but was constipated for the last 2 weeks. Patient also states that she felt dizzy yesterday and fell because her legs gave out but did not report any head trauma. Patient also states burning sensation dysuria when she urinates. She also states that she had fevers which were intermittent since the last 2 weeks. Does not use home oxygen. Abdominal CT showed cirrhosis with large amount of ascites cleared liver ultrasound showed cirrhotic appearance of liver, ascites. Patient is admitted for further management. Past medical history: hypertension, dyslipidemia, anxiety, depression Past surgical history: Hysterectomy, cholecystectomy Family history: Reviewed, noncontributory Personal history patient denies smoking, drinking, drug use Lives with: Family PCP: Dr. Olivarez Review of Systems Constitutional: Yes: Fever, Chills; No: Sweats, Weakness, Malaise, Other Eyes: No: Pain, Vision change, Conjunctivae inflammation, Eyelid inflammation, Other, Redness ENT: No: Ear pain, Ear discharge, Nose pain, Nose discharge, Nose congestion, Mouth pain, Mouth swelling, Throat pain, Throat swelling, Other Respiratory: No: Cough, Dry, Shortness of breath, SOB with excertion, Wheezing, Hemoptysis, Pleuritic Pain, Sputum, Wheezing, Other Cardiovascular: No: Chest Pain, Palpitations, Orthopnea, Paroxysmal Noc. Dys pnea, Edema, Lt Headedness, Other Gastrointestinal: Abdominal Pain, Diarrhea, Constipation; No: Nausea, Vomiting, Melena, Hematochezia, Other Genitourinary: Dysuria; No Frequency, No Incontinence, No Hematuria, No Retention, No Other Musculoskeletal: No: other, neck pain, shoulder pain, arm pain, back pain, hand pain, leg pain, foot pain Skin: No: Rash, Lesions, Jaundice, Bruising, Other Neurological: No: Weakness, Numbness, Incoordination, Change in speech, Confusion, Seizures, Other Allergies: Coded Allergies: NO KNOWN ALLERGIES (Unverified , 06/28/25) Medications Current Medications Medications Dose Ordered Sig/Juan Route Start Time Stop Time Status Last Admin Dose Admin Ondansetron HCl 4 mg Q4HP PRN IV 07/02/25 02:00 Docusate Sodium 100 mg BIDPRN PRN PO 07/02/25 02:00 Morphine Sulfate 2 mg Q4HPRN PRN IV 07/02/25 02:00 Ceftriaxone Sodium/Dextrose 50 ml @ 50 mls/hr DAILY IV 07/03/25 10:00 Metronidazole 100 ml @ 100 mls/hr Q8HR IV 07/02/25 14:00 Exam Vital Signs Vital Signs Date Time Temp Pulse Resp B/P (MAP) Pulse Ox O2 Delivery O2 Flow Rate FiO2 07/02/25 04:30 72 20 96 Room Air* 0 21 07/02/25 04:20 98.3 128/74 (92) 98.3 Exam General: Patient alert and oriented in person, place and time. Patient following commands. Moderate distress HEENT: Normocephalic, atraumatic, moist mucous membranes Respiratory/pulmonary: Clear lungs bilaterally, vesicular murmurs present in almost all lung pelaez, no associated crackles or wheezes. Cardiovascular: Normal heart sounds S1 and S2 with no associated murmurs Abdomen: abdominal distention, diffuse tenderness, no guarding, rigidity Extremities: Mild bilateral pitting edema Peripheral Pulses: 3+ Radial (R). 3+ Radial (L). 3+ Dorsalis pedis (R). 3+ Dorsalis pedis(L) Skin: No rashes or pruritus, there is no sacral edema present at this time. Neurological: Intact cranial nerves with no focal neurologic deficits Psych/mood: Normal Labs/Xrays Labs Test 07/02/25 03:19 07/02/25 02:13 07/02/25 00:17 07/01/25 21:02 Range/Units White Blood Count 6.9 4.4-10.8 10^3/uL Red Blood Count 3.38 L 4.0-5.20 10^6/uL Hemoglobin 11.7 L 12.2-16.2 g/dL Hematocrit 34.6 L 36.0-46.0 % Mean Corpuscular Volume 102.5 H 80.0-100.0 fL Mean Corpuscular Hemoglobin 34.7 H 28.0-32.0 pg Mean Corpuscular Hemoglobin Concent 33.9 32.0-36.0 g/dL Red Cell Distribution Width 15.2 H 11.8-14.3 % Platelet Count 148 140-450 10^3/uL Mean Platelet Volume 7.6 6.9-10.8 fL Neutrophils (%) (Auto) 59.3 37.0-80.0 % Lymphocytes (%) (Auto) 29.1 10.0-50.0 % Monocytes (%) (Auto) 11.1 0.0-12.0 % Eosinophils (%) (Auto) 0.3 0.0-7.0 % Basophils (%) (Auto) 0.2 0.0-2.0 % Neutrophils # (Auto) 4.1 1.6-8.6 10 ^3/uL Lymphocytes # (Auto) 2.0 0.4-5.4 10 ^3/uL Monocytes # (Auto) 0.8 0-1.3 10 ^3/uL Eosinophils # (Auto) 0 0-0.8 10 ^3/uL Basophils # (Auto) 0 0-0.2 10 ^3/uL Nucleated Red Blood Cells 0.1 % Sodium Level 139 136-145 mmol/L Potassium Level 3.4 L 3.5-5.1 mmol/L Chloride Level 106 98-107 mmol/L Carbon Dioxide Level 23 20-31 mmol/L Anion Gap 10 5-15 Blood Urea Nitrogen 6 L 9-23 mg/dL Creatinine 0.71 0.550-1.02 mg/dL Glomerular Filtration Rate Calc 92 >90 mL/min BUN/Creatinine Ratio 8.5 L 10.0-20.0 Serum Glucose 110 H 74-106 mg/dL Calcium Level 8.2 L 8.7-10.4 mg/dL Total Bilirubin 3.7 H 0.2-1.0 mg/dL Aspartate Amino Transferase (AST) 163 H 13-40 U/L Alanine Aminotransferase (ALT) 118 H 7-40 U/L Alkaline Phosphatase 137 H 46-116 U/L Total Protein 8.0 5.7-8.2 g/dL Albumin 3.0 L 3.2-4.8 g/dL Prothrombin Time 14.6 H 9.3-11.8 sec Prothrombin Time INR 1.43 H 0.9-1.15 Lactic Acid Level 2.0 0.4-2.0 mmol/L Troponin I High Sensitivity 11 </=34 ng/L Lipase 40 12-53 U/L SEPSIS Sepsis Screen Date sepsis recognized/suspect: Jul 01, 2025 Time Sepsis recognized/suspect: 2039 Recent Procedure: No On Antibiotic Therapy: No Respiratory Rate >20: No Heart Rate >90: No Temp<36 C (96.8 F) or >38.3 C: No SBP <90 or MAP <65 mmHG: No New Acute Mental Status Change: No Is the patient on CPAP, BIPAP,: No Physician Orders Abdomen Limited (07/01/25 22:23) Admit (07/02/25 01:53) Allergies (07/02/25:53) Code Status (07/02/25:53) Ondansetron Hcl (Zofran) (07/02/25 02:00) Docusate Sodium Capsule (Colace Capsule) (07/02/25 02:00) Npo (Nothing By Mouth) Diet (07/02/25 Breakfast) Condition: Serious (07/02/25 01:53) Bedrest With Bathroom Privileg (07/02/25 01:53) Morphine Sulfate Injection (07/02/25 02:00) Oxygen By Nasal Cannula (07/02/25:53) Stat Ekg For Chest Pain (07/02/25 01:53) Notify Md Of Changes From Base (07/02/25 01:53) Five Piece Expansion Maker Hand For 24 Hours (07/02/25 01:53) Emergency Dysrhythmia Protocol (07/02/25 01:53) Rhythm Strips Once Every Shift (07/02/25 01:53) Metronidazole 500mg/100ml (Flagyl 500mg/ (07/02/25 14:00) Ceftriaxone 2gm/50ml (Rocephin 2gm/50ml) (07/03/25 10:00) Vital Signs Date Time Temp Pulse Resp B/P (MAP) Pulse Ox O2 Delivery O2 Flow Rate FiO2 07/02/25 04:30 72 20 96 Room Air* 0 21 07/02/25 04:20 98.3 72 20 128/74 (92) 96 98.3 07/02/25 02:57 98.5 78 96 152/70 (97) 98 98.5 07/02/25 01:27 135/60 07/02/25 01:09 84 12 95 Room Air* 0 21 07/02/25 01:08 98.7 84 12 135/60 (85) 95 98.7 Laboratory Tests Test 07/01/25 21:02 07/01/25 23:03 07/02/25 02:13 07/02/25 03:19 Lactic Acid Level 2.4 mmol/L (0.4-2.0) *H 2.6 mmol/L (0.4-2.0) *H 2.0 mmol/L (0.4-2.0) White Blood Count 6.2 10^3/uL (4.4-10.8) 6.9 10^3/uL (4.4-10.8) Medications Medications Dose Ordered Sig/Juan Route Start Time Stop Time Status Last Admin Dose Admin Albumin Human 100 ml @ 100 mls/hr ONCE ONCE IV 07/01/25 22:30 07/01/25 23:29 DC 07/02/25 01:01 100 MLS/HR Ceftriaxone Sodium/Dextrose 50 ml @ 50 mls/hr ONCE ONCE IV 07/02/25 02:00 07/02/25 02:59 DC 07/02/25 04:38 50 MLS/HR Fentanyl Citrate 100 mcg ONCE ONCE IV 07/02/25 01:30 07/02/25 01:31 DC 07/02/25 01:27 100 MCG Metronidazole 100 ml @ 100 mls/hr ONCE ONCE IV 07/02/25 02:00 07/02/25 02:59 DC 07/02/25 02:54 100 MLS/HR Sodium Chloride 1,000 ml @ 1,000 mls/hr Q1H ONCE IV 07/01/25 22:30 07/01/25 23:29 DC 07/02/25 00:58 1,000 MLS/HR Assessment/Plan Assessment/Plan Assessment and plan # possible spontaneous bacterial peritonitis # liver cirrhosis with large ascites - IV ceftriaxone - IV metronidazole - IR consulted, pending - CT abdomen showed Cirrhosis with large amount of ascites. Cholecystectomy. - liver ultrasound showed Cirrhotic appearance of the liver. Ascites. - hepatitis panel Consider spironolactone plus Lasix after paracentesis # hypokalemia - repleted, monitor labs # transaminitis - monitor labs - liver ultrasound showed Cirrhotic appearance of the liver. Ascites. # lactic acidosis due to liver cirrhosis - monitor lactic acid # hypertension - resume home notes # dyslipidemia - resume home meds # anxiety/depression - resume home meds PPI prophylaxis: Protonix DVT prophylaxis: not indicated Goals of care addressed with the patient for more than 33 minutes: Full code status Case discussed with Dr. Bañuelos , patient and nurse Plan discussed with: Patient My Orders Orders - LYRIC BRAY RESIDENT Procedure Category Date Status Time Admit ADMIT 07/02/25 Transmitted 01:53 Allergies INOCENCIA 07/02/25 In Process 01:53 Code Status CODE 07/02/25 Transmitted 01:53 Ondansetron Hcl PHA 07/02/25 In Process (Zofran) 02:00 Docusate Sodium PHA 07/02/25 In Process Capsule (Colace 02:00 Npo (Nothing By DIET 07/02/25 Transmitted Mouth) Diet Breakfast Condition: Serious INOCENCIA 07/02/25 In Process 01:53 Bedrest With Bathroom [facility] 07/02/25 In Process Privileg 01:53 Morphine Sulfate [facility] 07/02/25 In Process Injection 02:00 Oxygen By Nasal RT 07/02/25 Transmitted Cannula 01:53 Stat Ekg For Chest [facility] 07/02/25 In Process Pain 01:53 Notify Md Of Changes [facility] 07/02/25 In Process From Base 01:53 Five Piece Expansion Maker Hand For [facility] 07/02/25 In Process 24 Hours 01:53 Emergency Dysrhythmia [facility] 07/02/25 In Process Protocol 01:53 Rhythm Strips Once INOCENCIA 07/02/25 In Process Every Shift 01:53 Metronidazole PHA 07/02/25 In Process 500mg/100ml (Flagyl 14:00 Ceftriaxone 2gm/50ml PHA 07/03/25 In Process (Rocephin 2gm/50ml) 10:00 Date of Service: Jul 01, 2025 Billing Provider: YESSY BAÑUELOS MD Common Visit Codes: 54729-[id number] INP/OBS CARE (HIGH) Secondary Visit Codes: 38479-[id number] CARE PLAN 30 MINUTES LYRIC BRAY RESIDENT Jul 02, 2025 05:55 REGGIE ROBLEDO RESIDENT Jul 02, 2025 09:13
[2025-07-02] MEDS: POTASSIUM CHL 20MEQ/100ML 100 ML IV ONE (06:08)
[2025-07-02] MEDS ORDERED: PANT1INJ3 IV (06:45)
[2025-07-02] MEDS ORDERED: OXYB5SOL PO (06:45)
[2025-07-02] MEDS ORDERED: BACL10TA PO (06:45)
[2025-07-02] MEDS ORDERED: OXYB5TAB14 GT (06:45)
[2025-07-02] MEDS ORDERED: CITA-73 PO (06:45)
[2025-07-02] MEDS ORDERED: ATOR20TA50 PO (06:45)
[2025-07-02] MEDS ORDERED: HYDR25TA4 PO (06:45)
[2025-07-02] MEDS ORDERED: ENOXAPARIN SOD 40 MG/0.4 ML SYRINGE SC SCH (08:45)
[2025-07-02] MEDS ORDERED: FUROSEMIDE 40 MG/4 ML VIAL IV ONE (08:45)
[2025-07-02] MEDS: PANTOPRAZOLE 40 MG/10 ML VIAL INJ IV SCH (09:07)
[2025-07-02 11:43] LABS: Hepatitis A Total Antibody Positive (Negative); Hepatitis B Surface Antigen Negative (Negative); Hepatitis C Antibody Negative (Negative)
[2025-07-02] MEDS: POTASSIUM CHL 20 Meq TABLET PO ONE (13:58)
[2025-07-02] MEDS: SPIRONOLACTONE 25 MG TAB PO SCH (13:58)
[2025-07-02] MEDS: LACTULOSE 20Gm/30ML SOLN PO SCH (13:59)
[2025-07-02] MEDS: FUROSEMIDE 40 MG/4 ML VIAL IV SCH (13:59)
[2025-07-02] MEDS: ENOXAPARIN SOD 40 MG/0.4 ML SYRINGE SC SCH (13:59)
[2025-07-02] MEDS: MORPHINE SULFATE INJ 2 MG/ml SYRG IV PRN (16:29)
--- NOTE | 2025-07-02 17:02 | DVHNC2 ---
Other Procedure Procedure INDICATION: Massive Ascitic PROCEDURE ENGINE TESTING SUPERVISOR: Steven Blanco ATTENDING PHYSICIAN: Dr. Hanley Ultrasound used to nestor location: Yes CONSENT: During the informed consent discussion regarding the procedure, or treatment, I explained the following to the patient/designee: Nature of the procedure or treatment and who will perform the procedure or treatment, necessity for procedure and the possible benefits, risks and complications (most common and serious). PROCEDURE SUMMARY: A time-out was performed. My hands were washed immediately prior to the procedure. I wore a surgical cap, mask with protective eyewear, sterile gown and sterile gloves throughout the procedure. The area was cleansed and draped in usual sterile fashion using chlorhexidine scrub. Anesthesia was achieved with 1% lidocaine. The _ of the abdomen was prepped and draped in a sterile fashion using chlorhexidine scrub. 1% lidocaine was used to numb the skin, soft tissue and peritoneum. The paracentesis catheter was inserted and advanced with negative pressure until clear colored fluid was aspirated. Failed Procedure. Ascitic fluid was not coming out. The catheter was removed and no leaking was noted. A bandaid was placed over the puncture wound. The patient tolerated the procedure well without any immediate complications. Estimated blood loss was less than 2ml. Indication Large ascites Prep As above Success Unsuccessful Informed consent obtained: Yes Risks, benefits, and alternati: Yes UTO Consent yes Notes Failed procedure Date of Service: Jul 02, 2025 Billing Provider: MAREK GUARDADO MD Common Visit Codes: PROCEDURE ONLY TAMMY BLANCO Jul 02, 2025 17:02
--- NOTE | 2025-07-02 17:12 | DVHPNRES ---
Progress Note Date Seen: Jul 02, 2025 Resident Creating Document: TAMMY ZULUAGA RESIDENT Medical Necessity Reason Pt with a Central, PICC or Fol: No Subjective Review of Systems Anitha Mijares is a 69-year-old female with past medical history of hypertension, dyslipidemia, anxiety, depression who came to the ED with chief complaints of 9/10, intermittent abdominal pain associated with abdominal distention, progressively worsening over 2 weeks, radiating to the back patient also states that she feels like food gets stuck in her throat, had watery diarrhea 3 times yesterday but was constipated for the last 2 weeks. Patient also states that she felt dizzy yesterday and fell because her legs gave out but did not report any head trauma. Patient also states burning sensation dysuria when she urinates. She also states that she had fevers which were intermittent since the last 2 weeks. Does not use home oxygen. Initial lab workup revealed hypokalemia with a potassium 3.2, lactic acid 2.4, serum bilirubin 3.3, AST 2 2, ALT 141, AST 30. Negative for hepatitis-B surface antigen, hepatitis-C C antibody. Ultrasound of the liver revealed cirrhotic appearance of the liver, ascites. Abdominal CT showed cirrhosis with large amount of ascites cleared liver ultrasound showed cirrhotic appearance of liver, ascites. Past medical history: hypertension, dyslipidemia, anxiety, depression Past surgical history: Hysterectomy, cholecystectomy Family history: Reviewed, noncontributory Personal history patient denies smoking, drinking, drug use Lives with: Family PCP: Dr. Olivarez Patient was seen today at bedside, labs and chart reviewed. Patient reported ongoing abdominal pain and abdominal swelling. Patient also reported feeling. Hypokalemia replenished. Failed attempt for paracentesis. Plan is to do CT scan of the abdomen with the contrast tomorrow morning. Patient is on Lasix and spironolactone and ceftriaxone 2 g IV daily for possible spontaneous bacterial peritonitis. Objective vital signs Vital Sign Date Time Temp Pulse Resp B/P (MAP) Pulse Ox O2 Delivery O2 Flow Rate FiO2 07/02/25 16:29 90 18 102/82 07/02/25 13:00 99.4 93 99.4 07/02/25 08:00 Room Air* 0 21 Total Intake and Output 07/01/25 07/01/25 07/02/25 15:00 23:00 07:00 Intake Total 150 ml Balance 150 ml medications Current Medications Medications Dose Ordered Sig/Juan Route Start Time Stop Time Status Last Admin Dose Admin Ondansetron HCl 4 mg Q4HP PRN IV 07/02/25 02:00 Docusate Sodium 100 mg BIDPRN PRN PO 07/02/25 02:00 Morphine Sulfate 2 mg Q4HPRN PRN IV 07/02/25 02:00 07/02/25 16:29 2 MG Ceftriaxone Sodium/Dextrose 50 ml @ 50 mls/hr DAILY IV 07/03/25 10:00 Metronidazole 100 ml @ 100 mls/hr Q8HR IV 07/02/25 14:00 07/02/25 13:59 100 MLS/HR Pantoprazole Sodium 40 mg DAILY IV 07/02/25 10:00 07/02/25 09:07 40 MG Furosemide 40 mg DAILY IV 07/02/25 10:00 07/02/25 13:59 40 MG Spironolactone 100 mg DAILY PO 07/02/25 09:45 07/02/25 13:58 100 MG Lactulose 30 ml BID PO 07/02/25 10:00 07/02/25 13:59 30 ML Enoxaparin Sodium 40 mg DAILY SC 07/02/25 09:48 07/02/25 13:59 40 MG Acetaminophen 650 mg Q6HP PRN PO 07/02/25 16:45 UNV Examination General examination- awake, alert, oriented HEENT- PEERLA, no acute nasal discharge Cardiovascular- S1-S2 audible, rate and rhythm regular, no murmur Respiratory- CTAB, no wheeze or rhonchi Gastrointestinal-tender abdomen especially left lower quadrant++, bowel sounds present Musculoskeletal-no acute joint swelling or tenderness or redness Lower extremity-bilateral leg edema++ Neurological- cranial nerves intact, no acute dysarthria or dysphagia Psychiatry- denies depression or SI or HI Skin- no acute rash or purpura laboratory and microbiology Laboratory Tests 07/02/25 03:19 Test 07/02/25 03:19 Range/Units Serum Glucose 110 H 74-106 mg/dL Problem List/Assessment/Plan Problem List/Assessment/Plan Assessment and plan # acute decompensated hepatic failure # suspected spontaneous bacterial peritonitis # ascites # cirrhosis of liver # suspected portal hypertension # transaminitis # bilateral leg edema likely due to cirrhosis liver, rule out CHF -pending echo 2D -ordered MARYBEL, anti-smooth muscle antibody for further evaluation -on Lasix and spironolactone -on lactulose 30 mL p.o. b.i.d. -on ceftriaxone 2 g IV daily -monitor vitals -failed paracentesis attempt today, we will do repeat CT abdomen and pelvis without contrast tomorrow morning. # lactic acidosis -resolved # hypertension -on Lasix and spironolactone # hyperlipidemia -monitor clinically # anxiety, depression -monitor clinically Goals of care, Code status full code ; discussed with >15 minutes PUD prophylaxis: Pantoprazole DVT prophylaxis: Lovenox Plan discussed with Dr. Hanley , nursing staff, Total time spent on patient evaluation, chart review, assessment and plan, discussion discussion >35 minutes Plan discussed with: Patient, Other My Orders My Orders Orders - TAMMY ZULUAGA Procedure Category Date Status Time Furosemide Injection PHA 07/02/25 In Process (Lasix Injection) 10:00 Spironolactone PHA 07/02/25 In Process (Aldactone) 09:45 Lactulose Oral PHA 07/02/25 In Process 10:00 Drug Screen LAB 07/02/25 Logged 08:42 Enoxaparin Sodium PHA 07/02/25 In Process (Lovenox) 09:48 Marybel; Direct LAB 07/02/25 In Process 11:26 Actin (Smooth Muscle) LAB 07/02/25 In Process Antibody 11:26 Echo 2d Mode Cardiac US 07/02/25 Logged DOP 12:38 Regular Diet DIET 07/02/25 Transmitted Dinner Blood Culture SHAUN 07/02/25 Logged 16:29 Ct Ab Pel Wo Con-No CT 07/03/25 Logged Oral Or Iv 07:00 Complete Blood Count LAB 07/03/25 Verified 04:00 Comprehensive LAB 07/03/25 Verified Metabolic Panel 04:00 Ammonia LAB 07/03/25 Verified 04:00 Prothrombin Time W/ LAB 07/03/25 Verified INR 04:00 Magnesium LAB 07/03/25 Verified 04:00 Acetaminophen Tablet PHA 07/02/25 Logged (Tylenol Tablet) 16:45 TAMMY ZULUAGA Jul 02, 2025 17:12
[2025-07-02] MEDS: ACETAMINOPHEN 325 MG TAB PO PRN (17:55)
[2025-07-03] VITALS (8 sets, daily range): BP systolic 103–118; BP diastolic 58–74; PULSE 71–87; RESP 16–20; TEMP 97.9–98.9; O2SAT 94–96
[2025-07-03 09:31] LABS: Anion Gap 7 (5-15); BUN/Creatinine Ratio 6.5 (10.0-20.0); Carbon Dioxide 24 mmol/L (20-31); Glucose 87 mg/dL (74-106); INR 1.54 (0.9-1.15); Magnesium 1.9 mg/dL (1.6-2.6); Prothrombin Time 15.6 sec (9.3-11.8); Sodium 140 mmol/L (136-145); Total Protein 7.1 g/dL (5.7-8.2)
[2025-07-03 09:35] LABS: Alanine Aminotransferase 88 U/L (7-40); Albumin 2.5 g/dL (3.2-4.8); Alkaline Phosphatase 123 U/L (46-116); Bilirubin, Total 2.1 mg/dL (0.2-1.0); Blood Urea Nitrogen 5 mg/dL (9-23); Calcium 7.8 mg/dL (8.7-10.4); Chloride 109 mmol/L (98-107); Potassium 3.2 mmol/L (3.5-5.1)
[2025-07-03 09:43] LABS: Hematocrit 32.0 % (36.0-46.0); Hemoglobin 11.1 g/dL (12.2-16.2); Mean Corpuscular Hemoglobin 34.3 pg (28.0-32.0); Mean Corpuscular Volume 99.4 fL (80.0-100.0); Nucleated Red Blood Cells % 0.1 %
[2025-07-03 10:07] LABS: Anti-Nuclear Antibody Direct Negative (Negative)
--- NOTE | 2025-07-03 10:14 | DVH ---
CT abdomen and pelvis without contrast INDICATION: Cirrhosis of liver/ascites/perforation of hollow viscus Comparison: 07/01/2025 TECHNIQUE: Serial axial images were performed through the abdomen and pelvis and then reformatted in the sagitta l and coronal plane. All CT scans at this medical facility are performed using dose modulation techni ques as appropriate to a performed exam including the following: Automated exposure control was utili zed; adjustment of the MA and/or KvP according to patient size; and use of iterative reconstruction t echnique. FINDINGS: Patchy infiltrates in both lower lung zones. Heart size enlarged. Liver is cirrhotic in meenu earance. Gallbladder is been removed. Spleen normal in size. No renal stones or hydronephrosis. Moder ately large amount of ascites is present. The pancreas and adrenal glands are unremarkable. No evidence of bowel obstruction. In the pelvis there is a large amount of free fluid present IMPRESSION: 1. Compared to previous exam new bibasilar infiltrates. 2. Moderately severe ascites remains. 3. Cirrhosis of the liver. Computed Tomographic Radiation Dosimetry Report: Total CTDI vol = 8.02mGy Total DLP = 430 mGy-cm Low dose protocols were performed.
[2025-07-03] MEDS: POTASSIUM CHL 20 Meq TABLET PO ONE (11:05)
--- NOTE | 2025-07-03 12:09 | DVHPNRES ---
Progress Note Date Seen: Jul 03, 2025 Resident Creating Document: TAMMY ZULUAGA RESIDENT Medical Necessity Reason Pt with a Central, PICC or Fol: No Subjective Review of Systems Anitha Mijares is a 69-year-old female with past medical history of hypertension, dyslipidemia, anxiety, depression who came to the ED with chief complaints of 9/10, intermittent abdominal pain associated with abdominal distention, progressively worsening over 2 weeks, radiating to the back patient also states that she feels like food gets stuck in her throat, had watery diarrhea 3 times yesterday but was constipated for the last 2 weeks. Patient also states that she felt dizzy yesterday and fell because her legs gave out but did not report any head trauma. Patient also states burning sensation dysuria when she urinates. She also states that she had fevers which were intermittent since the last 2 weeks. Does not use home oxygen. Initial lab workup revealed hypokalemia with a potassium 3.2, lactic acid 2.4, serum bilirubin 3.3, AST 2 2, ALT 141, AST 30. Negative for hepatitis-B surface antigen, hepatitis-C C antibody. Ultrasound of the liver revealed cirrhotic appearance of the liver, ascites. Abdominal CT showed cirrhosis with large amount of ascites cleared liver ultrasound showed cirrhotic appearance of liver, ascites. Past medical history: hypertension, dyslipidemia, anxiety, depression Past surgical history: Hysterectomy, cholecystectomy Family history: Reviewed, noncontributory Personal history patient denies smoking, drinking, drug use Lives with: Family PCP: Dr. Olivarez Patient was seen today at bedside, labs and chart reviewed. Patient reported feeling better today, pain abdomen has decreased. BENJI negative. Patient had low-grade fever last night. Ordered COVID 19 and flu test. Review[address] CT scan of abdomen and pelvis had no significant change from before. Hypokalemia replenished. Dr. Hanley will retry paracentesis today. Objective vital signs Vital Sign Date Time Temp Pulse Resp B/P (MAP) Pulse Ox O2 Delivery O2 Flow Rate FiO2 07/03/25 09:00 98.9 80 20 117/74 (88) 95 98.9 07/03/25 08:00 Room Air* 0 21 Total Intake and Output 07/02/25 07/02/25 07/03/25 15:00 23:00 07:00 Intake Total 100 ml 100 ml 775 ml Balance 100 ml 100 ml 775 ml medications Current Medications Medications Dose Ordered Sig/Juan Route Start Time Stop Time Status Last Admin Dose Admin Ondansetron HCl 4 mg Q4HP PRN IV 07/02/25 02:00 Docusate Sodium 100 mg BIDPRN PRN PO 07/02/25 02:00 Morphine Sulfate 2 mg Q4HPRN PRN IV 07/02/25 02:00 07/02/25 16:29 2 MG Ceftriaxone Sodium/Dextrose 50 ml @ 50 mls/hr DAILY IV 07/03/25 10:00 07/03/25 10:00 50 MLS/HR Metronidazole 100 ml @ 100 mls/hr Q8HR IV 07/02/25 14:00 07/03/25 05:57 100 MLS/HR Pantoprazole Sodium 40 mg DAILY IV 07/02/25 10:00 07/03/25 08:33 40 MG Furosemide 40 mg DAILY IV 07/02/25 10:00 07/03/25 08:31 40 MG Spironolactone 100 mg DAILY PO 07/02/25 09:45 07/03/25 08:34 100 MG Lactulose 30 ml BID PO 07/02/25 10:00 07/03/25 08:31 30 ML Enoxaparin Sodium 40 mg DAILY SC 07/02/25 09:48 07/03/25 08:33 40 MG Acetaminophen 650 mg Q6HP PRN PO 07/02/25 16:45 07/02/25 17:55 650 MG Examination General examination- awake, alert, oriented HEENT- PEERLA, no acute nasal discharge Cardiovascular- S1-S2 audible, rate and rhythm regular, no murmur Respiratory- CTAB, no wheeze or rhonchi Gastrointestinal-tender abdomen especially left lower quadrant++, bowel sounds present Musculoskeletal-no acute joint swelling or tenderness or redness Lower extremity-bilateral leg edema++ Neurological- cranial nerves intact, no acute dysarthria or dysphagia Psychiatry- denies depression or SI or HI Skin- no acute rash or purpura laboratory and microbiology Laboratory Tests 07/03/25 08:50 Test 07/03/25 08:50 Range/Units Serum Glucose 87 74-106 mg/dL Problem List/Assessment/Plan Problem List/Assessment/Plan Assessment and plan # acute decompensated hepatic failure # suspected spontaneous bacterial peritonitis # ascites # cirrhosis of liver # suspected portal hypertension # transaminitis # bilateral leg edema likely due to cirrhosis liver, rule out CHF -CT abdomen and pelvis-Cirrhosis with large amount of ascites. Cholecystectomy. -repeat CT abdomen and pelvis no significant change from before -pending echo 2D - BENJI negative, -pending anti-smooth muscle antibody for further evaluation -on Lasix and spironolactone -on lactulose 30 mL p.o. b.i.d. -on ceftriaxone 2 g IV daily -monitor vitals -failed paracentesis attempt today, we will do repeat CT abdomen and pelvis without contrast tomorrow morning. # fever -ordered COVID and flu test # lactic acidosis -resolved # hypertension -on Lasix and spironolactone # hyperlipidemia -monitor clinically # anxiety, depression -monitor clinically Goals of care, Code status full code ; discussed with >15 minutes PUD prophylaxis: Pantoprazole DVT prophylaxis: Lovenox Plan discussed with Dr. Hanley , nursing staff, Total time spent on patient evaluation, chart review, assessment and plan, discussion discussion >35 minutes Plan discussed with: Patient, Other (RN) My Orders My Orders Orders - TAMMY ZULUAGA Procedure Category Date Status Time Regular Diet DIET 07/02/25 Transmitted Dinner Blood Culture SHAUN 07/02/25 In Process 16:29 Ct Ab Pel Wo Con-No CT 07/03/25 Resulted Oral Or Iv 07:00 Acetaminophen Tablet PHA 07/02/25 In Process (Tylenol Tablet) 16:45 Transfer Orders XFER 07/03/25 Transmitted 07:58 Echo 2d Mode Cardiac US 07/03/25 Logged DOP 12:38 Rapid Influenza A&B LAB 07/03/25 In Process 10:42 Covid19 Antigen [facility] 07/03/25 In Process TAMMY ZULUAGA Jul 03, 2025 12:09
[2025-07-03 12:24] LABS: COVID19 ANTIGEN SOFIA FIA NEGATIVE (NEGATIVE)
[2025-07-04] VITALS (8 sets, daily range): BP systolic 96–150; BP diastolic 52–77; PULSE 72–81; RESP 16–20; TEMP 97.5–98.2; O2SAT 94–99
[2025-07-04 07:18] LABS: Hematocrit 29.3 % (36.0-46.0); Hemoglobin 10.1 g/dL (12.2-16.2); Mean Corpuscular Hemoglobin 34.1 pg (28.0-32.0); Mean Corpuscular Volume 99.1 fL (80.0-100.0); Nucleated Red Blood Cells % 0.0 %
[2025-07-04 07:32] LABS: INR 1.62 (0.9-1.15); Prothrombin Time 16.4 sec (9.3-11.8)
[2025-07-04 07:40] LABS: Alkaline Phosphatase 107 U/L (46-116); Anion Gap 8 (5-15); Carbon Dioxide 24 mmol/L (20-31); Glucose 76 mg/dL (74-106); Magnesium 1.7 mg/dL (1.6-2.6); Potassium 3.5 mmol/L (3.5-5.1); Sodium 141 mmol/L (136-145); Total Protein 6.5 g/dL (5.7-8.2)
[2025-07-04 07:48] LABS: Alanine Aminotransferase 74 U/L (7-40); Albumin 2.2 g/dL (3.2-4.8); BUN/Creatinine Ratio 7.1 (10.0-20.0); Bilirubin, Total 1.7 mg/dL (0.2-1.0); Blood Urea Nitrogen < 5 mg/dL (9-23); Calcium 7.7 mg/dL (8.7-10.4); Chloride 109 mmol/L (98-107)
--- NOTE | 2025-07-04 13:28 | DVHSR ---
APPROVED REPORT EXAM: Two-dimensional and M-mode echocardiogram with Doppler and color Doppler. Blood Pressure: 113/73 mmHg INDICATION CHF/Cardiomyopathy RISK FACTORS Height: 5' 7", Weight: 151 DIMENSIONS LVDd3.5 (3.8-5.7cm)LA (2D)3.3 (1.9-4.0cm)Aortic Root3.3 (2.0-3.7cm) LVDs2.3 (2.5-4.0cm)LA (MM) (1.9-4.0cm)Aortic Cusp Exc1.7 (1.5-2.0cm) EF (%) 65.0 (55-70%)Rt. Atrium3.6 (1.9-4.0cm)Asc. Aorta3.6 cm IVSd1.0 (0.7-1.1cm)RV (D) (1.8-2.4cm) PWd1.0 (0.7-1.1cm) Mitral Valve MitralMitral Stenosis E wave1.20m/sMV Mean GR.mmHg A wave1.00m/sMV Peak GR.mmHg E/A ratio1.22D MVAcm2 Aortic Valve Aortic ValveAortic Stenosis V11.10m/Maty Mean GR.6mmHg V21.70m/Maty Peak GR.12mmHg LVOT Diameter2.1 (1.8-2.4cm)Doppler AVA2.24cm2 Pulmonic Valve V20.80m/s Tricuspid Valve TR Velocity2.40m/s [id number] Other Information Quality : Technically LimitedRhythm : Technically limited study due to body habitus. Conclusion Technically good study. Off axis views. Mild left atrial enlargement. Mild dilation of the sinuses of Valsalva. The mitral aortic and tricuspid as well as a pulmonic appear to be structurally normal. Left ventricular function is preserved at 60% with normal RV function. Mild TR. No masses vegetations. No pericardial effusion.
[2025-07-04] MEDS ORDERED: MAGNESIUM SULFATE 1GM/100ML 100 ML IV ONE (13:57)
[2025-07-04] MEDS: MAGNESIUM SULFATE 1GM/100ML 100 ML IV ONE (14:08)
[2025-07-04] MEDS: POTASSIUM CHL 20 Meq TABLET PO ONE (14:09)
--- NOTE | 2025-07-04 16:34 | DVHPNRES ---
Progress Note Date Seen: Jul 04, 2025 Resident Creating Document: OMAYRA ARAIZA RESIDENT Medical Necessity Reason Pt with a Central, PICC or Fol: No Subjective Review of Systems Anitha Mijares is a 69-year-old female with past medical history of hypertension, dyslipidemia, anxiety, depression who came to the ED with chief complaints of 9/10, intermittent abdominal pain associated with abdominal distention, progressively worsening over 2 weeks, radiating to the back. Patient also states that she feels like food gets stuck in her throat, had watery diarrhea 3 times yesterday but was constipated for the last 2 weeks. Patient also states that she felt dizzy yesterday and fell because her legs gave up, but did not report any head trauma. Patient also states burning sensation and dysuria when she urinates. She also states that she had fevers which were intermittent since the last 2 weeks. Does not use home oxygen. Initial lab workup revealed hypokalemia with a potassium 3.2, lactic acid 2.4, serum bilirubin 3.3, AST 2 2, ALT 141, AST 30. Negative for hepatitis-B surface antigen, hepatitis-C C antibody. Ultrasound of the liver revealed cirrhotic appearance of the liver, ascites. Abdominal CT showed cirrhosis with large amount of ascites cleared liver ultrasound showed cirrhotic appearance of liver, ascites. Past medical history: hypertension, dyslipidemia, anxiety, depression Past surgical history: Hysterectomy, cholecystectomy Family history: Reviewed, noncontributory Personal history patient denies smoking, drinking, drug use Lives with: Family PCP: Dr. Olivarez Patient was seen today at bedside, labs and chart reviewed. Patient reported feeling better today, pain abdomen has decreased. BENJI negative. COVID-19 and flu test were negative . Hepatitis a antibodies were present . Echo was done rule out CHF as the patient had leg edema, echo was within normal limits with ejection fraction 60%. 20mEq oral potassium was given along with 1 g magnesium. Objective vital signs Vital Sign Date Time Temp Pulse Resp B/P (MAP) Pulse Ox O2 Delivery O2 Flow Rate FiO2 07/04/25 14:52 78 18 120/82 07/04/25 13:00 98.0 99 98.0 07/04/25 08:00 Room Air* 0 21 Total Intake and Output 07/03/25 07/03/25 07/04/25 15:00 23:00 07:00 Intake Total 50 ml 100 ml 625 ml Balance 50 ml 100 ml 625 ml medications Current Medications Medications Dose Ordered Sig/Juan Route Start Time Stop Time Status Last Admin Dose Admin Ondansetron HCl 4 mg Q4HP PRN IV 07/02/25 02:00 Docusate Sodium 100 mg BIDPRN PRN PO 07/02/25 02:00 Morphine Sulfate 2 mg Q4HPRN PRN IV 07/02/25 02:00 07/04/25 14:22 2 MG Ceftriaxone Sodium/Dextrose 50 ml @ 50 mls/hr DAILY IV 07/03/25 10:00 07/04/25 09:34 50 MLS/HR Metronidazole 100 ml @ 100 mls/hr Q8HR IV 07/02/25 14:00 07/04/25 14:09 100 MLS/HR Pantoprazole Sodium 40 mg DAILY IV 07/02/25 10:00 07/04/25 09:15 40 MG Furosemide 40 mg DAILY IV 07/02/25 10:00 07/03/25 08:31 40 MG Spironolactone 100 mg DAILY PO 07/02/25 09:45 07/04/25 09:41 100 MG Lactulose 30 ml BID PO 07/02/25 10:00 07/04/25 09:15 30 ML Enoxaparin Sodium 40 mg DAILY SC 07/02/25 09:48 07/04/25 09:23 40 MG Acetaminophen 650 mg Q6HP PRN PO 07/02/25 16:45 07/02/25 17:55 650 MG Examination General examination- awake, alert, oriented HEENT- PEERLA, no acute nasal discharge Cardiovascular- S1-S2 audible, rate and rhythm regular, no murmur Respiratory- CTAB, no wheeze or rhonchi Gastrointestinal-abdomen distended,tender abdomen especially left lower quadrant++, bowel sounds present Musculoskeletal-no acute joint swelling or tenderness or redness Lower extremity-bilateral leg edema++ Neurological- cranial nerves intact, no acute dysarthria or dysphagia Psychiatry- denies depression or SI or HI Skin- no acute rash or purpur laboratory and microbiology Laboratory Tests 07/04/25 06:14 Test 07/04/25 06:14 Range/Units Serum Glucose 76 74-106 mg/dL Microbiology Date/Time Source Procedure Growth Status 07/02/25 17:30 Blood Blood Culture - Preliminary NO GROWTH AFTER 24 HOURS OF INCUBATION. Resulted Labs and/or images reviewed: Labs reviewed by me, Image(s) reviewed by me Problem List/Assessment/Plan Problem List/Assessment/Plan Acute decompensated hepatic failure Suspected spontaneous bacterial peritonitis Ascites Cirrhosis of liver Suspected portal hypertension Transaminitis Bilateral leg edema likely due to cirrhosis liver, ruled out CHF -echo 2D- LVEF 60% -BENJI negative, anti-smooth muscle antibody for further evaluation -on Lasix and spironolactone -on lactulose 30 mL p.o. b.i.d. -on ceftriaxone 2 g IV daily -monitor vitals -failed paracentesis attempt, repeat CT abdomen and pelvis showed Moderately severe ascites remains -Hep A positive Lactic acidosis -resolved Hypertension,controlled -on Lasix and spironolactone Hyperlipidemia -monitor clinically Anxiety, depression -monitor clinically Goals of care, Code status full code ; discussed with >23 minutes PUD prophylaxis: Pantoprazole DVT prophylaxis: Lovenox Plan discussed with Dr. Hanley , nursing staff Plan discussed with: Patient OMAYRA ARAIZA BRISA RESIDENT Jul 04, 2025 16:34
[2025-07-05] VITALS (7 sets, daily range): BP systolic 96–116; BP diastolic 57–88; PULSE 66–86; RESP 16–18; TEMP 97.7–98.8; O2SAT 92–98
[2025-07-05 06:34] LABS: Hematocrit 30.5 % (36.0-46.0); Hemoglobin 10.6 g/dL (12.2-16.2); Mean Corpuscular Hemoglobin 34.6 pg (28.0-32.0); Mean Corpuscular Volume 99.6 fL (80.0-100.0); Nucleated Red Blood Cells % 0.8 %
[2025-07-05 06:40] LABS: Anion Gap 8 (5-15); Carbon Dioxide 24 mmol/L (20-31); Potassium 3.6 mmol/L (3.5-5.1); Sodium 140 mmol/L (136-145)
[2025-07-05 06:43] LABS: Calcium 7.7 mg/dL (8.7-10.4); Chloride 108 mmol/L (98-107)
[2025-07-05 06:48] LABS: Glucose 88 mg/dL (74-106)
[2025-07-05 06:51] LABS: BUN/Creatinine Ratio 7.5 (10.0-20.0); Blood Urea Nitrogen < 5 mg/dL (9-23)
--- NOTE | 2025-07-05 15:26 | DVH ---
US PARACENTESIS, HISTORY: ASCITES PROCEDURE: Informed consent was obtained. The patient was placed in supine position. A limited locali zation ultrasound of the abdomen was obtained, and the skin site over the largest pocket of fluid was marked and entry site was prepped with chlorhexidine which was allowed to dry and draped in the usua l sterile fashion. Time out was performed. Following administration of 1% lidocaine local anesthetic, a 5 Taiwanese centesis needle catheter was percutaneously inserted into the peritoneal collection until fluid was aspirated. The catheter was advanced into the fluid collection and the needle removed. Abo ut 3750 cc of fluid was aspirated . The catheter was then removed and a sterile dressing applied. No immediate complication was identified. FINDINGS: Limited ultrasound imaging demonstrates mild to moderate ascites. Aspirated fluid was clear and serous. IMPRESSION: US-guided paracentesis with 3.8L removed.
--- NOTE | 2025-07-05 17:13 | DVHPNRES ---
Progress Note Date Seen: Jul 05, 2025 Resident Creating Document: TAMMY ZULUAGA RESIDENT Medical Necessity Reason Pt with a Central, PICC or Fol: No Subjective Review of Systems Anitha Mijares is a 69-year-old female with past medical history of hypertension, dyslipidemia, anxiety, depression who came to the ED with chief complaints of 9/10, intermittent abdominal pain associated with abdominal distention, progressively worsening over 2 weeks, radiating to the back patient also states that she feels like food gets stuck in her throat, had watery diarrhea 3 times yesterday but was constipated for the last 2 weeks. Patient also states that she felt dizzy yesterday and fell because her legs gave out but did not report any head trauma. Patient also states burning sensation dysuria when she urinates. She also states that she had fevers which were intermittent since the last 2 weeks. Does not use home oxygen. Initial lab workup revealed hypokalemia with a potassium 3.2, lactic acid 2.4, serum bilirubin 3.3, AST 2 2, ALT 141, AST 30. Negative for hepatitis-B surface antigen, hepatitis-C C antibody. Ultrasound of the liver revealed cirrhotic appearance of the liver, ascites. Abdominal CT showed cirrhosis with large amount of ascites cleared liver ultrasound showed cirrhotic appearance of liver, ascites. Past medical history: hypertension, dyslipidemia, anxiety, depression Past surgical history: Hysterectomy, cholecystectomy Family history: Reviewed, noncontributory Personal history patient denies smoking, drinking, drug use Lives with: Family PCP: Dr. Olivarez Patient was seen today at bedside, labs and chart reviewed. Patient had paracentesis done today.About 3750 cc of fluid was aspirated . The catheter was then removed and a sterile dressing applied. No immediate complication was identified. Fluid was sent for lab workup. Objective vital signs Vital Sign Date Time Temp Pulse Resp B/P (MAP) Pulse Ox O2 Delivery O2 Flow Rate FiO2 07/05/25 16:58 98.1 78 16 114/78 (90) 98 98.1 07/05/25 08:05 Room Air* 0 21 Total Intake and Output 07/04/25 07/04/25 07/05/25 15:00 23:00 07:00 Intake Total 100 ml 500 ml 640 ml Balance 100 ml 500 ml 640 ml medications Current Medications Medications Dose Ordered Sig/Juan Route Start Time Stop Time Status Last Admin Dose Admin Ondansetron HCl 4 mg Q4HP PRN IV 07/02/25 02:00 Docusate Sodium 100 mg BIDPRN PRN PO 07/02/25 02:00 Morphine Sulfate 2 mg Q4HPRN PRN IV 07/02/25 02:00 07/05/25 11:36 2 MG Ceftriaxone Sodium/Dextrose 50 ml @ 50 mls/hr DAILY IV 07/03/25 10:00 07/05/25 10:21 50 MLS/HR Metronidazole 100 ml @ 100 mls/hr Q8HR IV 07/02/25 14:00 07/05/25 15:08 100 MLS/HR Pantoprazole Sodium 40 mg DAILY IV 07/02/25 10:00 07/05/25 10:21 40 MG Furosemide 40 mg DAILY IV 07/02/25 10:00 07/05/25 10:22 40 MG Spironolactone 100 mg DAILY PO 07/02/25 09:45 07/05/25 10:22 100 MG Lactulose 30 ml BID PO 07/02/25 10:00 07/05/25 10:22 30 ML Enoxaparin Sodium 40 mg DAILY SC 07/02/25 09:48 07/05/25 10:22 40 MG Acetaminophen 650 mg Q6HP PRN PO 07/02/25 16:45 07/02/25 17:55 650 MG Examination General examination- awake, alert, oriented HEENT- PEERLA, no acute nasal discharge Cardiovascular- S1-S2 audible, rate and rhythm regular, no murmur Respiratory- CTAB, no wheeze or rhonchi Gastrointestinal-tender abdomen especially left lower quadrant++, bowel sounds present Musculoskeletal-no acute joint swelling or tenderness or redness Lower extremity-bilateral leg edema++ Neurological- cranial nerves intact, no acute dysarthria or dysphagia Psychiatry- denies depression or SI or HI Skin- no acute rash or purpura laboratory and microbiology Laboratory Tests 07/05/25 05:47 Test 07/05/25 05:47 Range/Units Serum Glucose 88 74-106 mg/dL Microbiology Date/Time Source Procedure Growth Status 07/02/25 17:30 Blood Blood Culture - Preliminary NO GROWTH AFTER 48 HOURS OF INCUBATION. Resulted Problem List/Assessment/Plan Problem List/Assessment/Plan Assessment and plan # acute decompensated hepatic failure # suspected spontaneous bacterial peritonitis # ascites # cirrhosis of liver # suspected portal hypertension # transaminitis # bilateral leg edema likely due to cirrhosis liver, rule out CHF -CT abdomen and pelvis-Cirrhosis with large amount of ascites. Cholecystectomy. -repeat CT abdomen and pelvis no significant change from before -pending echo 2D - BENJI negative, -pending anti-smooth muscle antibody for further evaluation -on Lasix and spironolactone -on lactulose 30 mL p.o. b.i.d. -on ceftriaxone 2 g IV daily -monitor vitals -status post paracentesis 3750 amiodarone fluid was removed. Sample sent for lab workup. # fever -negative for influenza type a and B and COVID-19 # Lactic acidosis -resolved # hypertension -on Lasix and spironolactone # hyperlipidemia -monitor clinically # anxiety, depression -monitor clinically Goals of care, Code status full code ; discussed with >15 minutes PUD prophylaxis: Pantoprazole DVT prophylaxis: Lovenox Plan discussed with Dr. Hanley , nursing staff, Total time spent on patient evaluation, chart review, assessment and plan, discussion discussion >35 minutes Plan discussed with: Patient, Other (RN) My Orders My Orders Orders - TAMMY ZULUAGA RESIDENT Procedure Category Date Status Time Paracentesis 07/05/25 Resulted Dietary Evaluation Review Comments: Monitor PO intake to meet 100% of her needs Expected Outcomes/Goals: maintain current wt TAMMY ZULUAGA RESIDENT Jul 05, 2025 17:12
[2025-07-06 01:00] VITALS: BP 105/68; PULSE 73; RESP 18; TEMP 97.9; O2SAT 94
[2025-07-06 05:00] VITALS: BP 104/59; PULSE 86; RESP 18; TEMP 98.5; O2SAT 94
[2025-07-06 07:39] LABS: Anion Gap 9 (5-15); Carbon Dioxide 25 mmol/L (20-31); Chloride 106 mmol/L (98-107); Glucose 80 mg/dL (74-106); Hemoglobin 11.6 g/dL (12.2-16.2); Sodium 140 mmol/L (136-145); Total Protein 7.3 g/dL (5.7-8.2)
[2025-07-06 07:40] LABS: Bilirubin, Total 0.9 mg/dL (0.2-1.0)
[2025-07-06 07:41] LABS: Alanine Aminotransferase 73 U/L (7-40); Albumin 2.4 g/dL (3.2-4.8); Alkaline Phosphatase 136 U/L (46-116); BUN/Creatinine Ratio 6.9 (10.0-20.0); Blood Urea Nitrogen < 5 mg/dL (9-23); Calcium 8.0 mg/dL (8.7-10.4); Potassium 3.3 mmol/L (3.5-5.1)
[2025-07-06 07:43] LABS: Hematocrit 33.4 % (36.0-46.0); Mean Corpuscular Hemoglobin 34.7 pg (28.0-32.0); Mean Corpuscular Volume 99.4 fL (80.0-100.0); Nucleated Red Blood Cells % 0.3 %
[2025-07-06 09:00] VITALS: BP 96/51; PULSE 73; RESP 16; TEMP 99.6; O2SAT 94
[2025-07-06] MEDS: POTASSIUM CHL 20 Meq TABLET PO ONE ×2 (09:18→09:51)
--- NOTE | 2025-07-06 09:43 | DVHDSRES ---
Discharge Summary Date of Admission Resident Creating Document: TAMMY ZULUAGA RESIDENT Jul 02, 2025 at 01:53 Date of Discharge: Jul 06, 2025 Admitting Diagnosis Acute decompensated cirrhosis of liver Labs/Diagnostic Data: Laboratory Results Test 07/06/25 06:02 07/05/25 14:40 07/04/25 06:14 07/03/25 11:42 White Blood Count 3.9 10^3/uL (4.4-10.8) Red Blood Count 3.36 10^6/uL (4.0-5.20) Hemoglobin 11.6 g/dL (12.2-16.2) Hematocrit 33.4 % (36.0-46.0) Mean Corpuscular Volume 99.4 fL (80.0-100.0) Mean Corpuscular Hemoglobin 34.7 pg (28.0-32.0) Mean Corpuscular Hemoglobin Concent 34.9 g/dL (32.0-36.0) Red Cell Distribution Width 14.8 % (11.8-14.3) Platelet Count 143 10^3/uL (140-450) Mean Platelet Volume 8.0 fL (6.9-10.8) Neutrophils (%) (Auto) 44.3 % (37.0-80.0) Lymphocytes (%) (Auto) 40.3 % (10.0-50.0) Monocytes (%) (Auto) 12.1 % (0.0-12.0) Eosinophils (%) (Auto) 2.8 % (0.0-7.0) Basophils (%) (Auto) 0.5 % (0.0-2.0) Neutrophils # (Auto) 1.7 10 ^3/uL (1.6-8.6) Lymphocytes # (Auto) 1.6 10 ^3/uL (0.4-5.4) Monocytes # (Auto) 0.5 10 ^3/uL (0-1.3) Eosinophils # (Auto) 0.1 10 ^3/uL (0-0.8) Basophils # (Auto) 0 10 ^3/uL (0-0.2) Nucleated Red Blood Cells 0.3 % Sodium Level 140 mmol/L (136-145) Potassium Level 3.3 mmol/L (3.5-5.1) Chloride Level 106 mmol/L (98-107) Carbon Dioxide Level 25 mmol/L (20-31) Anion Gap 9 (5-15) Blood Urea Nitrogen < 5 mg/dL (9-23) Creatinine 0.72 mg/dL (0.550-1.02) Glomerular Filtration Rate Calc 90 mL/min (>90) BUN/Creatinine Ratio 6.9 (10.0-20.0) Serum Glucose 80 mg/dL (74-106) Calcium Level 8.0 mg/dL (8.7-10.4) Total Bilirubin 0.9 mg/dL (0.2-1.0) Aspartate Amino Transferase (AST) 120 U/L (13-40) Alanine Aminotransferase (ALT) 73 U/L (7-40) Alkaline Phosphatase 136 U/L (46-116) Ammonia 23 umol/L (11-32) Total Protein 7.3 g/dL (5.7-8.2) Albumin 2.4 g/dL (3.2-4.8) Body Fluid Source Peritoneal fluid Body Fluid pH 8.0 Body Fluid WBC (Manual) 738 CUMM (0-200) Body Fluid RBC (Manual) 20 CUMM (0-2000) Body Fluid Mononuclear Cells 75 % Body Fluid Polymorphonuclear Cells 25 % (0-25) Prothrombin Time 16.4 sec (9.3-11.8) Prothrombin Time INR 1.62 (0.9-1.15) Magnesium Level 1.7 mg/dL (1.6-2.6) Influenza Type A Antigen Negative (Negative) Influenza Type B Antigen Negative (Negative) Test 07/03/25 11:08 07/02/25 11:50 07/02/25 03:19 07/02/25 02:13 SARS-CoV-2 Antigen (Rapid) Negative (NEGATIVE) Anti-Nuclear Antibody Screen Negative (Negative) Anti-Actin Antibody 63 Units (0-19) Hemoglobin A1c 4.2 % A1C (<5.7) Vitamin B12 Level 1614 pg/mL (211-911) Vitamin D 25-Hydroxy 37.9 ng/mL (30.0-100) Folic Acid 13.34 ng/mL (>5.38) Thyroid Stimulating Hormone (TSH) 2.35 uIU/mL (0.55-4.78) Plasma/Serum Blood Alcohol < 3.0 mg/dL (<10) Lactic Acid Level 2.0 mmol/L (0.4-2.0) Hepatitis A Antibody Total Positive (Negative) Hepatitis B Surface Antigen Negative (Negative) Hepatitis B Surface Antibody Negative (Negative) Hepatitis B Core Total Antibody Negative (Negative) Hepatitis C Antibody Negative (Negative) Test 07/02/25 00:17 07/01/25 21:02 Troponin I High Sensitivity 11 ng/L (</=34) Lipase 40 U/L (12-53) Other Laboratory Tests 07/06/25 06:02 Brief Hx & Hospital Course: Anitha You is a 69-year-old female with past medical history of hypertension, dyslipidemia, anxiety, depression who came to the ED with chief complaints of 06/30, intermittent abdominal pain associated with abdominal distention, progressively worsening over 2 weeks, radiating to the back patient also states that she feels like food gets stuck in her throat, had watery diarrhea 3 times yesterday but was constipated for the last 2 weeks. Patient also states that she felt dizzy yesterday and fell because her legs gave out but did not report any head trauma. Patient also states burning sensation dysuria when she urinates. She also states that she had fevers which were intermittent since the last 2 weeks. Does not use home oxygen. Initial lab workup revealed hypokalemia with a potassium 3.2, lactic acid 2.4, serum bilirubin 3.3, AST 2 2, ALT 141, AST 30. Negative for hepatitis-B surface antigen, hepatitis-C C antibody. Ultrasound of the liver revealed cirrhotic appearance of the liver, ascites. Abdominal CT showed cirrhosis with large amount of ascites cleared liver ultrasound showed cirrhotic appearance of liver, ascites. Patient was treated conservatively with the ceftriaxone, Lasix and spironolactone. Patient also had paracentesis and About 3750 cc of fluid was aspirated. Patient's symptom improved. Abdominal tenderness has reduced. Patient is being discharged with the Lasix 40 mg p.o. daily, spironolactone 100 mg p.o. daily, pantoprazole 20 mg p.o. daily. Patient was advised to follow up with the primary care physician in 1-2 weeks and also to follow up with the otr owner operator truck driver in 2-3 weeks for further evaluation and care. Patient's meds were sent to the pharmacy electronically. Patient was hemodynamically stable on discharge. Operations or Procedures [address] [address] Ph: [phone] DIAGNOSTIC IMAGING Diagnostic Imaging Report : [id number] Signed PATIENT: ANITHA YOU ACCT: [id number] UNIT: [id number] : 1955 LOC: [facility] ROOM / BED: [facility] / A AGE / SEX: 69 / F ADM STATUS: ADM IN SERVICE 0000 ORDERING PHYSICIAN: TAMMY ZULUAGA PROCEDURE(s): PARAC - PARACENTESIS REASON: ASCITES ORDER NUMBER(s): [id number], ACCESSION NUMBER(s): [id number] US PARACENTESIS, HISTORY: ASCITES PROCEDURE: Informed consent was obtained. The patient was placed in supine position. A limited localization ultrasound of the abdomen was obtained, and the skin site over the largest pocket of fluid was marked and entry site was prepped with chlorhexidine which was allowed to dry and draped in the usual sterile fashion. Time out was performed. Following administration of 1% lidocaine local anesthetic, a 5 Micronesian centesis needle catheter was percutaneously inserted into the peritoneal collection until fluid was aspirated. The catheter was advanced into the fluid collection and the needle removed. About 3750 cc of fluid was aspirated . The catheter was then removed and a sterile dressing applied. No immediate complication was identified. FINDINGS: Limited ultrasound imaging demonstrates mild to moderate ascites. Aspirated fluid was clear and serous. IMPRESSION: US-guided paracentesis with 3.8L removed. ATED BY: WESTON MCCLELLAND MD DICTATED DATE/TIME: 07/05/25 1524 SIGNED BY: WESTON MCCLELLAND MD SIGNED DATE/TIME: 07/05/25 1524 CC: [facility] [address] [facility] [address] Ph: [phone] DIAGNOSTIC IMAGING Diagnostic Imaging Report : [id number] Signed PATIENT: ANITHA YOU ACCT: [id number] UNIT: [id number] : 1955 LOC: [facility] AGE / SEX: 69 / F ADM STATUS: ADM IN SERVICE 0700 ORDERING PHYSICIAN: TAMMY ZULUAGA PROCEDURE(s): ABPL - CT AB PEL WO CON-NO ORAL OR IV REASON: Cirrhosis of liver/ascites/perforation of hollow viscus ORDER NUMBER(s): [id number], ACCESSION NUMBER(s): [id number] CT abdomen and pelvis without contrast INDICATION: Cirrhosis of liver/ascites/perforation of hollow viscus Comparison: 07/01/2025 TECHNIQUE: Serial axial images were performed through the abdomen and pelvis and then reformatted in the sagittal and coronal plane. All CT scans at this medical facility are performed using dose modulation techniques as appropriate to a performed exam including the following: Automated exposure control was utilized; adjustment of the MA and/or KvP according to patient size; and use of iterative reconstruction technique. FINDINGS: Patchy infiltrates in both lower lung zones. Heart size enlarged. Liver is cirrhotic in appearance. Gallbladder is been removed. Spleen normal in size. No renal stones or hydronephrosis. Moderately large amount of ascites is present. The pancreas and adrenal glands are unremarkable. No evidence of bowel obstruction. In the pelvis there is a large amount of free fluid present IMPRESSION: 1. Compared to previous exam new bibasilar infiltrates. 2. Moderately severe ascites remains. 3. Cirrhosis of the liver. Computed Tomographic Radiation Dosimetry Report: Total CTDI vol = 8.02mGy Total DLP = 430 mGy-cm Low dose protocols were performed. ATED BY: FRANCISCA MUELLER MD DICTATED DATE/TIME: 07/03/25 1012 SIGNED BY: FRANCISCA MUELLER MD SIGNED DATE/TIME: 07/03/25 1012 CC: [place] [address] Ph: [phone] DIAGNOSTIC IMAGING Diagnostic Imaging Report : [id number] Signed PATIENT: ANITHA YOU ACCT: [id number] UNIT: [id number] : 1955 LOC: ER ROOM / BED: / AGE / SEX: 69 / F ADM STATUS: REG ER SERVICE 22 ORDERING PHYSICIAN: RAEANN COHN DO PROCEDURE(s): ABDL - ABDOMEN LIMITED REASON: RUQ US, abd pain ORDER NUMBER(s): [id number], ACCESSION NUMBER(s): [id number] INDICATION: RUQ US, abd pain TECHNIQUE: Multiple real-time sonographic images were obtained of the right upper quadrant. COMPARISON: None FINDINGS: The liver measures 9.7 cm. There is increased hepatic echogenicity. There is nodular contour. Prior cholecystectomy. The common bile duct measures 6 mm. The right kidney measures 9.8 cm. The right kidney is normal in contour, size, and shape. The echogenicity is normal. There is no hydronephrosis. The pancreas is not well visualized due to overlying bowel gas. Ascites is seen in all 4 quadrants. IMPRESSION: 1. Cirrhotic appearance of the liver. 2. Ascites. ATED BY: SERGIO CARMONA MD DICTATED DATE/TIME: 07/01/252315 SIGNED BY: SERGIO CARMONA MD SIGNED DATE/TIME: 07/01/252315 CC: [place] [address] Ph: [phone] DIAGNOSTIC IMAGING Diagnostic Imaging Report : [id number] Signed PATIENT: ANITHA YOU ACCT: [id number] UNIT: [id number] : 1955 LOC: ER ROOM / BED: / AGE / SEX: 69 / F ADM STATUS: REG ER SERVICE 46 ORDERING PHYSICIAN: RAEANN COHN DO PROCEDURE(s): ABPL - CT AB PEL WO CON-NO ORAL OR IV REASON: ABD PAIN ORDER NUMBER(s): [id number], ACCESSION NUMBER(s): [id number] CLINICAL HISTORY: ABD PAIN TECHNIQUE: CT of the abdomen and pelvis was performed without IV contrast. This exam was performed according to our departmental dose optimization program. Up-to-date CT equipment and radiation dose reduction techniques are utilized as appropriate. CTDI 8.4 DLP 474 COMPARISON: None FINDINGS: Evaluation is limited to image degradation secondary to patient motion. Abdomen/Pelvis: The adrenal glands, kidneys, pancreas, spleen, and uterus are grossly unremarkable. The liver is cirrhotic in morphology with nodular contour. The bladder is not well distended and therefore not well evaluated. The abdominal aorta is normal in course and caliber. There are no significant atherosclerotic calcifications. There is no free intraperitoneal air. Is a large amount of sites in the peritoneal cavity. There is no enlarged abdominal pelvic lymph node. There is no bowel wall thickening or dilatation. The appendix is normal. Other: The imaged lower thorax demonstrates trace bilateral pleural effusions. There are breathing changes with atelectasis. No acute osseous abnormality is evident. Impression: Cirrhosis with large amount of ascites. Cholecystectomy. ATED BY: SERGIO CARMONA MD DICTATED DATE/TIME: 07/01/252216 SIGNED BY: SERGIO CARMONA MD SIGNED DATE/TIME: 07/01/252216 CC: Condition at Discharge: Stable Final Diagnosis/Problems List # acute decompensated hepatic failure # suspected spontaneous bacterial peritonitis # ascites # cirrhosis of liver # suspected portal hypertension # transaminitis # bilateral leg edema likely due to cirrhosis liver, rule out CHF # Lactic acidosis # hypertension # hyperlipidemia # anxiety, depression Discharge Disposition: Home Discharge Instruct/Medications Diet: Cardiac 2g Na,low cholest Follow Up/Referral: Please follow up with the primary care physician in 1-2 weeks with the lab report of ascitic fluid analysis Please follow up with your otr owner operator truck driver in 2-3 weeks for further evaluation and care of cirrhosis of liver Avoid hepatotoxic medications Medications: Continue Lasix 40 mg p.o. daily Continue spironolactone 100 mg p.o. daily Pantoprazole 20 mg p.o. daily Resume other home medications Scheduled Atorvastatin Calcium (Atorvastatin Calcium), 1 TAB PO DAILY, (Reported) Baclofen (Baclofen), 10 MG PO Q8HP, (Reported) Cephalexin (Keflex Capsule), 500 MG PO BID Cephalexin Monohydrate (Cephalexin), 500 MG PO Q6HR Citalopram Hydrobromide (Citalopram Hydrobromide), 40 MG PO DAILY, (Reported) Furosemide (Lasix), 40 MG PO DAILY Hydrochlorothiazide (Hydrochlorothiazide), 25 MG PO DAILY, (Reported) Lactulose (Lactulose), 20 GM PO DAILY Pantoprazole Sodium Sesquihydr (Pantoprazole Sodium), 20 MG PO DAILY Scheduled PRN Spironolactone (Spironolactone), 1 TAB PO DAILY PRN Miscellaneous Medications Oxybutynin Chloride (Oxybutynin Chloride), 5 MG PO, (Reported) Pantoprazole Sodium (Pantoprazole Sodium), 40 MG IV, (Reported) Discharge Statement: "Patient was advised to return to the ER or call 911 if any headaches, dizziness, shortness of breath, chest pain, abdominal pain, bleeding, fevers, or worsening of medical condition. Patient was counseled about treatment plan, medications, possible side effects, patientverbalized understanding. All questions were answered to the best of my ability. This discharge took greater then 30 minutes in planning, reviewing documentation, counseling the patient, and discussing with other team members." ASSESSMENT ASSESSMENT Assessment TAMMY ZULUAGA RESIDENT Jul 06, 2025 09:43
[2025-07-06] MEDS ORDERED: FURO1TAB31 PO (09:45)
[2025-07-06] MEDS ORDERED: SPIR100T4 PO (09:45)
[2025-07-06] MEDS ORDERED: PANT40T PO (09:46)
[2025-07-06] MEDS ORDERED: LACT10SO3 PO (09:47)
[2025-07-06] MEDS ORDERED: RIFA550T PO (10:11)
[2025-07-06] MEDS ORDERED: CEPH250C PO ×2 (11:51→14:24)
[2025-07-06 13:00] VITALS: BP 128/68; PULSE 68; RESP 16; TEMP 98.6; O2SAT 95
[2025-07-07 15:07] LABS: Glucose, Body Fluid 115.0 mg/dL (.); LD, Body Fluid 62.0 IU/L (.)
== END 2025-07-06 14:04 | disposition home or self-care (01) | DRG 432 ==
LOC: EDBD 20:40 → ER 20:40 → OVERFLOW 07-02 01:53 → TELE-WESTW 07-02 04:37 → WEST WING 07-04 01:42
PROVIDERS: ADMIT Internal Medicine Geriatric Medicine; ATTEND Internal Medicine Geriatric Medicine
PROC: 0WJG3ZZ Inspection of Peritoneal Cavity, Percutaneous Approach (ICD-10-PCS; principal; 2025-07-02)
PROC: 0W9G3ZZ Drainage of Peritoneal Cavity, Percutaneous Approach (ICD-10-PCS; 2025-07-05)
DX: K74.60 Unspecified cirrhosis of liver (principal); K65.2 Spontaneous bacterial peritonitis; E87.20 Acidosis, unspecified; K76.6 Portal hypertension; R18.8 Other ascites; K72.90 Hepatic failure, unspecified without coma; E87.6 Hypokalemia; E78.5 Hyperlipidemia, unspecified; I50.9 Heart failure, unspecified; I11.0 Hypertensive heart disease with heart failure; E88.09 Other disorders of plasma-protein metabolism, not elsewhere classified; F41.9 Anxiety disorder, unspecified; F32.A Depression, unspecified; Z90.49 Acquired absence of other specified parts of digestive tract; Z79.899 Other long term (current) drug therapy
CPT/HCPCS: 36415; 49083; 74176; 76705; 76942; 80048; 80053; 80320; 82140; 82306; 82607; 82746; 83036; 83605; 83690; 83735; 83986; 84443; 84484; 85025; 85610; 86038; 86704; 86706; 86708; 86803; 87040; 87071; 87205; 87340; 87426; 87804; 89051; 93005; 93306; G0378; J2405; J2470; J3480; J3490; P9047